=== PATIENT | female | born 1930 | race Caucasian/White ===

== ENCOUNTER 2016-08-03 11:42 | Emergency (ER) | payer MEDICARE ==
[~2016-08-03] VITALS: Ht 162.6 cm; Wt 47.5 kg
[~2016-08-03 11:42] MED LIST: ALPR0.25 PO; BRIM0.2S4 LEFT EYE; CLON0.1T PO; LATA0.002 EACH EYE; MONT10TA2 PO; NIFE30TA61 PO; POTA-163 PO; ZOFR4TAB3 SL; ZOLO25TA PO
[2016-08-03 11:46] VITALS: BP 191/82; PULSE 84; RESP 17; TEMP 97.8; O2SAT 89
[2016-08-03] MEDS ORDERED: SODIUM CHLORIDE 0.9% FLUSH 10 ML FLUSH IVF PRN (12:00)
[2016-08-03] MEDS ORDERED: MECLIZINE HCL 25 MG TAB PO ONE (12:00)
[2016-08-03] MEDS ORDERED: ONDANSETRON HCL 4 MG/2 ML VIAL IVP ONE (12:00)
--- NOTE | 2016-08-03 12:00 | PD ---
HPI Chief Complaint: Dizziness Time Seen by Provider: 11:54 Travel History International Travel<30 days: No Contact w/Intl Traveler<30days: No Traveled to known affect area: No History of Present Illness HPI 85-year-old female with history of COPD and hypertension presents to the emergency Department with sudden onset symptoms of vertigo, and nausea/ vomiting. Patient states she got up feeling well this morning at 9 AM, and went to the living room and read the newspaper as she normally does. Patient states he then stood up immediately got dizzy, with the room spinning, causing her to fall, and becoming suddenly nauseous and vomit. Patient states she's had several similar episodes since that time. Patient denies headache, fever, chills, chest pain, shortness of breath, or abdominal pain. Patient has no numbness, tingling, or weakness in the extremities. Patient currently is chilled but otherwise has no complaints. Patient is allergic to codeine, doxycycline, morphine, penicillin, and sulfa. PFSH Past Medical History Arthritis: Yes Blood Disorders: No Anxiety: Yes Depression: Yes Heart Rhythm Problems: No Cancer: Yes (LUNG ) Cardiac Catheterization: No Cardiovascular Problems: Yes High Cholesterol: No Chemotherapy: No Congestive Heart Failure: No COPD: Yes Diabetes: No Diminished Hearing: No Endocrine: No Glaucoma: No Genitourinary: No Hepatitis: No Hiatal Hernia: No Hypertension: Yes Immune Disorder: No Implanted Vascular Access Dvce: No Musculoskeletal: Yes (MILD ARTHRITIS IN HANDS) Neurologic: No Psychiatric: Yes (CLAUSTROPHOBIC) Reproductive: No Respiratory: Yes (COPD) Myocardial Infarction: No Radiation Therapy: No Thyroid Disease: No Menopausal: Yes Past Surgical History Abdominal Surgery: Yes (gallbladder. appendectomy) AICD: No Appendectomy: Yes Cardiac Surgery: Yes (aortic/THORACIC aneurysm removal with stent placement x2) Cholecystectomy: Yes Coronary Artery Bypass Graft: No Eye Surgery: Yes (BILATERAL CATARACTS) Gynecologic Surgery: Yes Hysterectomy: Yes Joint Replacement: No Pacemaker: No Thoracic Surgery: Yes (right lung lobectomy ) Other Surgery: Yes (lumpectomy right lung) Social History Alcohol Use: Yes (1 beer daily ) Tobacco Use: No Substance Use: No Allergies-Medications (Allergen,Severity, Reaction): Coded Allergies: Codeine (Verified Allergy, Severe, Hives, 03/08/16) Doxycycline (Verified Allergy, Severe, SEVERE RASH, 03/08/16) Morphine (Verified Allergy, Severe, 03/08/16) I DONT KNOW WHAT HAPPENS IT WAS SO LONG AGO Penicillin (Verified Allergy, Severe, Hives, 03/08/16) Sulfa (Verified Allergy, Severe, Hives, 03/08/16) Reported Meds & Prescriptions Reported Meds & Active Scripts Active Zofran (Ondansetron HCl) 4 Mg Tab 4 Mg PO Q6HR PRN Meclizine (Meclizine HCl) 25 Mg Chew 25 Mg CHEW TID Keflex (Cephalexin) 500 Mg Cap 500 Mg PO Q8H Potassium Chloride ER (Potassium Chloride) 20 Meq Tab 20 Meq PO DAILY Reported Clonidine (Clonidine HCl) 0.1 Mg Tab 0.1 Mg PO Q8HR Zoloft (Sertraline HCl) 25 Mg Tab 75 Mg PO DAILY Alprazolam 0.25 Mg Tab 0.25 Mg PO HS PRN Latanoprost Opth Drops (Latanoprost) 0.005% Drops 1 Drop EACH EYE HS Refrigerate until opened. Brimonidine Opth Drops (Brimonidine Tartrate) 0.2% Soln 1 Drop LEFT EYE Q12HR Zofran Odt (Ondansetron Odt) 4 Mg Tab 4 Mg SL Q12HR PRN Nifedipine ER 24 HR (Nifedipine) 30 Mg Tab 90 Mg PO DAILY Singulair (Montelukast Sodium) 10 Mg Tab 10 Mg PO DAILY Review of Systems Except as stated in HPI: all other systems reviewed are Neg General / Constitutional: No: Fever Eyes: No: Diploplia, Blurred Vision, Photophobia, Blind Spots, Visual changes, Blindness HENT: Positive: Vertigo, No: Headaches, Lightheadedness, Sore Throat, Rhinitis , Rhinorrhea, Congestion, Nosebleed, Neck Stiffness, Neck Pain, Dental Difficulties, Ear Discharge, Earache Cardiovascular: No: Chest Pain or Discomfort, Palpitations, Irregular Rhythm, Tachycardia, Diaphoresis Respiratory: No: Cough, Shortness of Breath Gastrointestinal: Positive: Nausea, Vomiting, No: Diarrhea, Abdominal Pain, Loss of Appetite Genitourinary: No: Dysuria Musculoskeletal: No: Pain Skin: No Rash Neurologic: Positive: Dizziness, No: Weakness, Syncope, Focal Abnormalities, Coordination Problem, Tremor, Ataxia, Headache, Change in Mentation, Slurred Speech, Paresthesia, Incontinence, Seizures, Sensory Disturbance Psychiatric: No: Depression Endocrine: No: Polydipsia Hematologic/Lymphatic: No: Easy Bruising Physical Exam Narrative GENERAL: Patient appears in no acute distress. SKIN: Warm and dry. Normal color. Normal turgor. No diaphoresis. HEAD: Atraumatic. Normocephalic. EYES: Pupils equal and round. No scleral icterus. No injection or drainage. No obvious nystagmus or visual changes by confrontation. ENT: No nasal bleeding or discharge. Mucous membranes pink and moist. TMs have no significant findings. There is wax in the canals bilaterally. No sinus tenderness. Pharynx is clear. Uvula is midline. Tongue is midline. Airway is patent. NECK: Trachea midline. No JVD. No bruits appreciated. Neck is supple nontender. CARDIOVASCULAR: Regular rate and rhythm. No murmurs gallops or rubs. RESPIRATORY: No accessory muscle use. Clear to auscultation. Breath sounds equal bilaterally. GASTROINTESTINAL: Abdomen soft, non-tender, nondistended. Hepatic and splenic margins not palpable. MUSCULOSKELETAL: Extremities without clubbing, cyanosis, or edema. No obvious deformities. NEUROLOGICAL: Awake and alert. No obvious cranial nerve deficits. Motor grossly within normal limits. Five out of 5 muscle strength in the arms and legs. Normal speech. PSYCHIATRIC: Appropriate mood and affect; insight and judgment normal. Data Data Last Documented VS Vital Signs Date Time Temp Pulse Resp B/P Pulse Ox O2 Delivery O2 Flow Rate FiO2 08/03/16 12:10 68 20 98 Room Air 08/03/16 11:46 97.8 191/82 Orders Electrocardiogram (08/03/16 12:00) Complete Blood Count With Diff (08/03/16 12:00) Comprehensive Metabolic Panel (08/03/16 12:00) Magnesium (Mg) (08/03/16 12:00) Ckmb (Isoenzyme) Profile (08/03/16 12:00) Troponin I (08/03/16 12:00) Act Partial Throm Time (Ptt) (08/03/16 12:00) Prothrombin Time / Inr (Pt) (08/03/16 12:00) Urinalysis - C+S If Indicated (08/03/16 12:00) Ecg Monitoring (08/03/16 12:00) Iv Access Insert/Monitor (08/03/16 12:00) Oximetry (08/03/16 12:00) Meclizine (Antivert) (08/03/16 12:00) Ondansetron Inj (Zofran Inj) (08/03/16 12:00) Sodium Chloride 0.9% Flush (Ns Flush) (08/03/16 12:00) Mri Brain W/O Contrast (08/03/16 ) Sodium Chlorid 0.9% 500 Ml Inj (Ns 500 M (08/03/16 12:15) Albuterol-Ipratropium Neb (Duoneb Neb) (08/03/16 12:15) Lorazepam Inj (Ativan Inj) (08/03/16 12:30) Urine Culture (08/03/16 13:00) Lorazepam Inj (Ativan Inj) (08/03/16 14:00) Ceftriaxone Inj (Rocephin Inj) (08/03/16 14:15) Labs Laboratory Tests Test 08/03/16 08/03/16 12:16 13:00 White Blood Count 10.5 TH/MM3 Red Blood Count 4.37 MIL/MM3 Hemoglobin 12.3 GM/DL Hematocrit 37.4 % Mean Corpuscular Volume 85.7 FL Mean Corpuscular Hemoglobin 28.3 PG Mean Corpuscular Hemoglobin 33.0 % Concent Red Cell Distribution Width 16.1 % Platelet Count 168 TH/MM3 Mean Platelet Volume 8.6 FL Neutrophils (%) (Auto) 76.8 % Lymphocytes (%) (Auto) 14.9 % Monocytes (%) (Auto) 6.3 % Eosinophils (%) (Auto) 1.3 % Basophils (%) (Auto) 0.7 % Neutrophils # (Auto) 8.1 TH/MM3 Lymphocytes # (Auto) 1.6 TH/MM3 Monocytes # (Auto) 0.7 TH/MM3 Eosinophils # (Auto) 0.1 TH/MM3 Basophils # (Auto) 0.1 TH/MM3 CBC Comment DIFF FINAL Differential Comment Prothrombin Time 10.1 SEC Prothromb Time International 0.9 RATIO Ratio Activated Partial 23.2 SEC Thromboplast Time Sodium Level 138 MEQ/L Potassium Level 4.1 MEQ/L Chloride Level 103 MEQ/L Carbon Dioxide Level 25.8 MEQ/L Anion Gap 9 MEQ/L Blood Urea Nitrogen 21 MG/DL Creatinine 1.12 MG/DL Estimat Glomerular Filtration 46 ML/MIN Rate Random Glucose 94 MG/DL Calcium Level 9.2 MG/DL Magnesium Level 2.3 MG/DL Total Bilirubin 0.6 MG/DL Aspartate Amino Transf 21 U/L (AST/SGOT) Alanine Aminotransferase 18 U/L (ALT/SGPT) Alkaline Phosphatase 64 U/L Total Creatine Kinase 63 U/L Troponin I LESS THAN 0.02 NG/ML Total Protein 7.1 GM/DL Albumin 3.6 GM/DL Urine Color LIGHT-YELLOW Urine Turbidity CLEAR Urine pH 8.0 Urine Specific [place] 1.011 Urine Protein 30 mg/dL Urine Glucose (UA) NEG mg/dL Urine Ketones NEG mg/dL Urine Occult Blood NEG Urine Nitrite NEG Urine Bilirubin NEG Urine Urobilinogen LESS THAN 2.0 MG/DL Urine Leukocyte Esterase LARGE Urine RBC 3 /hpf Urine WBC 95 /hpf Urine Squamous Epithelial <1 /hpf Cells Urine Transitional Epithelial <1 /hpf Cells Urine Mucus FEW /lpf Microscopic Urinalysis Comment CATH-CULTURE IND MDM Medical Decision Making Medical Screen Exam Complete: Yes Emergency Medical Condition: Yes Medical Record Reviewed: Yes Differential Diagnosis Acute vertigo. Intracranial bleed. Nausea and vomiting. Narrative Course Patient is medically stable at time of exam. Labs ordered including CBC, CMP, EKG, chest x-ray, urinalysis, PT PTT and INR, and cardiac panel. Patient is discussed with Dr. Loyola who recommends MRI of the head without contrast. Patient is given meclizine 25 mg by mouth. Patient is given 500 mL normal saline bolus. Patient is given Zofran 4 mg IV. CBC is unremarkable. CMP shows normal electrolytes, BUN 21, creatinine 1.12, and negative troponin. Coagulation studies are normal. Urinalysis shows urinary tract infection. Urine cultures place. 1 g Rocephin IV as ordered per Dr. Loyola. MRI of the head is pending. MRI of the head showed no acute findings per radiologist. Patient is ambulated. Patient will be sent home on Keflex 500 mg 3 times a day 7 days. Patient is given meclizine 25 mg one every 6 hours when necessary vertigo symptoms. #12. Patient also given Zofran 4 mg every 6 hours when necessary nausea. #12. Patient is to follow with her primary care physician is week to ensure improvement. Patient can return the emergency Department with worsening symptoms at any time. Diagnosis Primary Impression: UTI (urinary tract infection) Qualified Code: N30.00 - Acute cystitis without hematuria Additional Impressions: Vertigo Nausea & vomiting Qualified Code: R11.2 - Non-intractable vomiting with nausea, unspecified vomiting type Additional Instructions: Patient will be sent home on Keflex 500 mg 3 times a day 7 days. Patient is given meclizine 25 mg one every 6 hours when necessary vertigo symptoms. #12. Patient also given Zofran 4 mg every 6 hours when necessary nausea. #12. Patient is to follow with her primary care physician is week to ensure improvement. Patient can return the emergency Department with worsening symptoms at any time. Scripts Ondansetron (Zofran)4 Mg Tab4 Mg PO Q6HR PRN (NAUSEA OR VOMITING) #12 TAB Prov:Nataly Bernardo MD 08/03/16 Meclizine 25 Mg Chew25 Mg CHEW TID #12 TAB Ref 0 Prov:Nataly Bernardo MD 08/03/16 Cephalexin (Keflex)500 Mg [id number] Mg PO Q8H #21 CAP Prov:Nataly Bernardo MD 08/03/16 Disposition: 01 DISCHARGE HOME Condition: Stable Dustin Najera Aug 03, 2016 12:00
[2016-08-03 12:10] VITALS: O2SAT 98
[2016-08-03] MEDS ORDERED: RESP: ALBUTEROL 2.5 MG/IPRATROPIUM 0.5 MG NEB (SCH) NEB ONE (12:15)
[2016-08-03] MEDS ORDERED: SODIUM CHLORID 0.9% 500 ML INJ 500 ML IV ONE (12:15)
[2016-08-03] MEDS ORDERED: LORazepam 2 MG/ML VIAL IM ONE (12:30)
[2016-08-03 12:43] LABS: AUTOMATED NEUTROPHIL # 8.1 TH/MM3 (1.8-7.7); BASOPHIL # 0.1 TH/MM3 (0-0.2); BASOPHIL % 0.7 % (0.0-2.0); EOSINOPHIL # 0.1 TH/MM3 (0-0.4); EOSINOPHIL % 1.3 % (0.0-4.0); HEMATOCRIT 37.4 % (35.0-46.0); HEMO FLAGS DIFF FINAL; LYMPH % 14.9 % (9.0-44.0); LYMPHOCYTE # 1.6 TH/MM3 (1.0-4.8); MEAN CELL VOLUME 85.7 FL (80.0-100.0); MEAN CORPUSCULAR HEMOGLOBIN 28.3 PG (27.0-34.0); MONO % 6.3 % (0.0-8.0); NEUT % 76.8 % (16.0-70.0); PLATELET COUNT 168 TH/MM3 (150-450); RED BLOOD COUNT 4.37 MIL/MM3 (4.00-5.30); RED CELL DISTRIBUTION WIDTH 16.1 % (11.6-17.2); WHITE BLOOD COUNT 10.5 TH/MM3 (4.0-11.0)
[2016-08-03 12:54] LABS: APTT (PATIENT) 23.2 SEC (24.3-30.1); INTERNATIONAL NORMALIZED RATIO 0.9 RATIO; PROTHROMBIN TIME - PATIENT 10.1 SEC (9.8-11.6)
[2016-08-03 13:03] LABS: ALKALINE PHOSPHATASE 64 U/L (45-117); ALT (GPT) 18 U/L (10-53); ANION GAP 9 MEQ/L (5-15); AST (GOT) 21 U/L (15-37); BICARBONATE 25.8 MEQ/L (21.0-32.0); BLOOD UREA NITROGEN 21 MG/DL (7-18); CHLORIDE 103 MEQ/L (98-107); CREATINE KINASE 63 U/L (26-192); GLOMERULAR FILTRATION RATE 46 ML/MIN (>89); MAGNESIUM 2.3 MG/DL (1.5-2.5); POTASSIUM 4.1 MEQ/L (3.5-5.1); SODIUM (NA) 138 MEQ/L (136-145); TOTAL BILIRUBIN ADULT 0.6 MG/DL (0.2-1.0)
--- NOTE | 2016-08-03 13:06 | PD ---
Data Data Last Documented VS Vital Signs Date Time Temp Pulse Resp B/P Pulse Ox O2 Delivery O2 Flow Rate FiO2 08/03/16 12:10 68 20 98 Room Air 08/03/16 11:46 97.8 191/82 Orders Electrocardiogram (08/03/16 12:00) Complete Blood Count With Diff (08/03/16 12:00) Comprehensive Metabolic Panel (08/03/16 12:00) Magnesium (Mg) (08/03/16 12:00) Ckmb (Isoenzyme) Profile (08/03/16 12:00) Troponin I (08/03/16 12:00) Act Partial Throm Time (Ptt) (08/03/16 12:00) Prothrombin Time / Inr (Pt) (08/03/16 12:00) Urinalysis - C+S If Indicated (08/03/16 12:00) Ecg Monitoring (08/03/16 12:00) Iv Access Insert/Monitor (08/03/16 12:00) Oximetry (08/03/16 12:00) Meclizine (Antivert) (08/03/16 12:00) Ondansetron Inj (Zofran Inj) (08/03/16 12:00) Sodium Chloride 0.9% Flush (Ns Flush) (08/03/16 12:00) Mri Brain W/O Contrast (08/03/16 ) Sodium Chlorid 0.9% 500 Ml Inj (Ns 500 M (08/03/16 12:15) Albuterol-Ipratropium Neb (Duoneb Neb) (08/03/16 12:15) Lorazepam Inj (Ativan Inj) (08/03/16 12:30) Labs Laboratory Tests Test 08/03/16 12:16 White Blood Count 10.5 TH/MM3 Red Blood Count 4.37 MIL/MM3 Hemoglobin 12.3 GM/DL Hematocrit 37.4 % Mean Corpuscular Volume 85.7 FL Mean Corpuscular Hemoglobin 28.3 PG Mean Corpuscular Hemoglobin 33.0 % Concent Red Cell Distribution Width 16.1 % Platelet Count 168 TH/MM3 Mean Platelet Volume 8.6 FL Neutrophils (%) (Auto) 76.8 % Lymphocytes (%) (Auto) 14.9 % Monocytes (%) (Auto) 6.3 % Eosinophils (%) (Auto) 1.3 % Basophils (%) (Auto) 0.7 % Neutrophils # (Auto) 8.1 TH/MM3 Lymphocytes # (Auto) 1.6 TH/MM3 Monocytes # (Auto) 0.7 TH/MM3 Eosinophils # (Auto) 0.1 TH/MM3 Basophils # (Auto) 0.1 TH/MM3 CBC Comment DIFF FINAL Differential Comment Prothrombin Time 10.1 SEC Prothromb Time International 0.9 RATIO Ratio Activated Partial 23.2 SEC Thromboplast Time Sodium Level 138 MEQ/L Potassium Level 4.1 MEQ/L Chloride Level 103 MEQ/L Carbon Dioxide Level 25.8 MEQ/L Anion Gap 9 MEQ/L Blood Urea Nitrogen 21 MG/DL Creatinine 1.12 MG/DL Estimat Glomerular Filtration 46 ML/MIN Rate Random Glucose 94 MG/DL Calcium Level 9.2 MG/DL Magnesium Level 2.3 MG/DL Total Bilirubin 0.6 MG/DL Aspartate Amino Transf 21 U/L (AST/SGOT) Alanine Aminotransferase 18 U/L (ALT/SGPT) Alkaline Phosphatase 64 U/L Total Creatine Kinase 63 U/L Troponin I LESS THAN 0.02 NG/ML Total Protein 7.1 GM/DL Albumin 3.6 GM/DL [facility] Supervised Visit with SAÚL: Yes Narrative Course I, Dr. Bernardo, have reviewed the advance practice practioner's documentation and am in agreement, met with the patient face to face, made the diagnosis, and the medical decision making was done by me. *My assessment and Findings: 85-year-old female here with complaint of sudden onset of vertigo with nausea and vomiting. States that his symptoms happen intermittently, seems the common and resolve almost like a light switch. She does not have any other neurologic symptoms such as word-finding difficulties, slurred speech, numbness, tingling, weakness. Patient denies a history of vertigo. Otherwise has been really well recently. She on exam is asymptomatic at the time of my evaluation. No nystagmus, test of skew is normal, so does not provoked with head movement. Differential includes peripheral versus central etiology of vertigo. Given her age will obtain laboratory workup, EKG and MRI of the brain to evaluate for central etiology, treat her symptoms and if negative discharge to home if she is able ambulate independently and asymptomatically. Nataly Bernardo MD Aug 03, 2016 13:06
[2016-08-03 13:49] LABS: BLOOD, URINE NEG (NEG); GLUCOSE,URINE NEG (NEG); KETONE, URINE NEG (NEG); MUCUS URINE FEW /lpf (OCC); NITRITE,URINE NEG (NEG); SQUAMOUS EPITHELIAL CELL URINE <1 /hpf (0-5); TRANSITIONAL EPI CELLS, URINE <1 /hpf; URINE COLOR LIGHT-YELLOW (YELLW/STRAW)
[2016-08-03 13:50] LABS: COMMENT (UR) CATH-CULTURE IND; CULTURE IF INDICATED CATH CULTURE IND
[2016-08-03] MEDS ORDERED: LORazepam 2 MG/ML VIAL IV PUSH ONE (14:00)
[2016-08-03] MEDS ORDERED: cefTRIAXone INJ 1,000 MG in SODIUM CHLORIDE 0.9% INJ 100 ML IV ONE (14:15)
--- NOTE | 2016-08-03 14:49 | RADRPT ---
EXAM DATE/TIME: 08/03/2016 14:26 [facility] COMPARISON: No previous studies available for comparison. INDICATIONS : Dizziness. MEDICAL HISTORY : Chronic obstructive pulmonary disease. Hypertension. Carcinoma, lung. SURGICAL HISTORY : Abdominal aortic aneurysm repair. Appendectomy. Hysterectomy. Right lobectomy. ENCOUNTER: Initial ACUITY: 1 day PAIN SCORE: 0/10 LOCATION: cranial TECHNIQUE: Multiplanar, multisequence MRI of the brain was performed without contrast. FINDINGS: There is no evidence for intracranial hemorrhage, mass effect, mass lesions, edema, or extra-axial fl uid collections. There are no signs of acute infarction for technique. The diffusion portion is unre markable. Slight degree of brain atrophy is seen. Slight periventricular white matter changes are see n nonspecific mostly consistent with chronic small vessel ischemic changes. CONCLUSION: Chronic atrophic and small vessel ischemic changes without any evidence for acute hem orrhage or mass effect. Emelina Mcelroy MD on August 03, 2016 at 14:46 Board Certified Radiologist. This report was verified electronically.
[2016-08-03] MEDS ORDERED: CEPH-460 PO (15:04)
[2016-08-03] MEDS ORDERED: MECL25CH CHEW (15:04)
[2016-08-03] MEDS ORDERED: ZOFR4TAB PO (15:04)
--- NOTE | 2016-08-04 11:50 | EKG ---
Date Performed: 08/03/2016 Time Performed: 12:58:14 PTAGE: 85 years EKG: SINUS BRADYCARDIA BORDERLINE ECG PREVIOUS TRACING : 01/02/2016 13.52 Compared to prior tracing no significant change DOCTOR: Adam Prajapati Interpretating Date/Time 08/04/2016 11:49:29
== END 2016-08-03 18:10 | disposition home or self-care (01) ==
LOC: NEPE 11:42
DX: N39.0 Urinary tract infection, site not specified (principal); R42 Dizziness and giddiness; R11.2 Nausea with vomiting, unspecified; R00.1 Bradycardia, unspecified; J44.9 Chronic obstructive pulmonary disease, unspecified; I10 Essential (primary) hypertension
CPT/HCPCS: 70551; 80053; 81001; 82550; 83735; 84484; 85025; 85610; 85730; 87086; 93005; 96361; 96365; 96375; 99284; J0696; J2060; J2405; J7040

== ENCOUNTER 2016-08-15 15:15 | Emergency (ER) | payer MEDICARE ==
[~2016-08-15] VITALS: Ht 152.4 cm; Wt 45.5 kg
[~2016-08-15 15:15] MED LIST changes: +CEPH-460 PO; +MECL25CH CHEW; +ZOFR4TAB PO
[2016-08-15 15:17] VITALS: BP 108/67; PULSE 98; RESP 21; TEMP 98.8; O2SAT 95
--- NOTE | 2016-08-15 15:20 | PD ---
Physical Exam Date Seen by Provider: Aug 15, 2016 Time Seen by Provider: 15:19 Narrative 85 yo female here for stomach pains since thursday. History of colitis. Nause and vomit as well as diarrhea. No bleeding. No chest pain or SOB. Pain is 9/10. Has not seen anybody for this. No travel. Vitals sign stable. Patient awaiting bed placement. [facility] Medical Record Reviewed: Yes Supervised Visit with SAÚL: Ethan Shelton Aug 15, 2016 15:20
[2016-08-15 16:59] LABS: AUTOMATED NEUTROPHIL # 10.4 TH/MM3 (1.8-7.7); BASOPHIL # 0.1 TH/MM3 (0-0.2); BASOPHIL % 0.9 % (0.0-2.0); EOSINOPHIL # 0.2 TH/MM3 (0-0.4); EOSINOPHIL % 1.2 % (0.0-4.0); HEMATOCRIT 38.8 % (35.0-46.0); HEMO FLAGS DIFF FINAL; LYMPH % 21.2 % (9.0-44.0); LYMPHOCYTE # 3.1 TH/MM3 (1.0-4.8); MEAN CELL VOLUME 85.1 FL (80.0-100.0); MEAN CORPUSCULAR HEMOGLOBIN 28.5 PG (27.0-34.0); MEAN CORPUSCULAR HGB CONC 33.5 % (32.0-36.0); MONO % 6.3 % (0.0-8.0); NEUT % 70.4 % (16.0-70.0); PLATELET COUNT 202 TH/MM3 (150-450); RED BLOOD COUNT 4.56 MIL/MM3 (4.00-5.30); RED CELL DISTRIBUTION WIDTH 16.3 % (11.6-17.2); WHITE BLOOD COUNT 14.8 TH/MM3 (4.0-11.0)
[2016-08-15 17:17] LABS: ANION GAP 9 MEQ/L (5-15); APTT (PATIENT) 21.1 SEC (24.3-30.1); AST (GOT) 13 U/L (15-37); BICARBONATE 27.8 MEQ/L (21.0-32.0); BLOOD UREA NITROGEN 25 MG/DL (7-18); CHLORIDE 100 MEQ/L (98-107); GLOMERULAR FILTRATION RATE 41 ML/MIN (>89); INTERNATIONAL NORMALIZED RATIO 0.9 RATIO; POTASSIUM 3.6 MEQ/L (3.5-5.1); PROTHROMBIN TIME - PATIENT 10.1 SEC (9.8-11.6); SODIUM (NA) 137 MEQ/L (136-145)
[2016-08-15 17:23] LABS: ALKALINE PHOSPHATASE 69 U/L (45-117); ALT (GPT) 15 U/L (10-53)
[2016-08-15] MEDS ORDERED: SODIUM CHLOR 0.9% 1000 ML INJ 1,000 ML IV SCH (17:43)
--- NOTE | 2016-08-15 17:43 | PD ---
HPI Chief Complaint: GI Complaint Time Seen by Provider: 17:32 Travel History International Travel<30 days: No Contact w/Intl Traveler<30days: No Traveled to known affect area: No History of Present Illness HPI 85-year-old female presents the emergency Department with 4 day history of abdominal pain, nausea, and vomiting. Patient states last time she vomited was yesterday. Patient has a history of dementia but is here with her son. Patient denies fever, chills, shortness of breath, or chest pain. She denies diarrhea. She states she's been drinking lots of fluids but has not urinated that she recalls in the last 24 hours. Patient is not dizzy has no headache. Patient has a history of diverticulitis and colitis in the past. Patient also has a history of constipation with fecal impaction according to the son. Patient did take 3 laxatives without improvement. She cannot recall her last bowel movement. She's had no diarrhea. She has multiple allergies including codeine, doxycycline, morphine, penicillin, and sulfa. PFSH Past Medical History Arthritis: Yes Blood Disorders: No Anxiety: Yes Depression: Yes Heart Rhythm Problems: No Cancer: Yes (LUNG ) Cardiac Catheterization: No Cardiovascular Problems: Yes High Cholesterol: No Chemotherapy: No Congestive Heart Failure: No COPD: Yes Diabetes: No Diminished Hearing: No Endocrine: No Glaucoma: No Genitourinary: No Hepatitis: No Hiatal Hernia: No Hypertension: Yes Immune Disorder: No Implanted Vascular Access Dvce: No Musculoskeletal: Yes (MILD ARTHRITIS IN HANDS) Neurologic: No Psychiatric: Yes (CLAUSTROPHOBIC) Reproductive: No Respiratory: Yes (COPD) Myocardial Infarction: No Radiation Therapy: No Thyroid Disease: No Menopausal: Yes Past Surgical History Abdominal Surgery: Yes (gallbladder. appendectomy) AICD: No Appendectomy: Yes Cardiac Surgery: Yes (aortic/THORACIC aneurysm removal with stent placement x2) Cholecystectomy: Yes Coronary Artery Bypass Graft: No Eye Surgery: Yes (BILATERAL CATARACTS) Gynecologic Surgery: Yes Hysterectomy: Yes Joint Replacement: No Pacemaker: No Thoracic Surgery: Yes (right lung lobectomy ) Other Surgery: Yes (lumpectomy right lung) Social History Alcohol Use: Yes (1 beer daily ) Tobacco Use: No Substance Use: No Allergies-Medications (Allergen,Severity, Reaction): Coded Allergies: Codeine (Verified Allergy, Severe, Hives, 03/08/16) Doxycycline (Verified Allergy, Severe, SEVERE RASH, 03/08/16) Morphine (Verified Allergy, Severe, 03/08/16) I DONT KNOW WHAT HAPPENS IT WAS SO LONG AGO Penicillin (Verified Allergy, Severe, Hives, 03/08/16) Sulfa (Verified Allergy, Severe, Hives, 03/08/16) Reported Meds & Prescriptions Reported Meds & Active Scripts Active Zofran (Ondansetron HCl) 4 Mg Tab 4 Mg PO Q6HR PRN Meclizine (Meclizine HCl) 25 Mg Chew 25 Mg CHEW TID Keflex (Cephalexin) 500 Mg Cap 500 Mg PO Q8H Potassium Chloride ER (Potassium Chloride) 20 Meq Tab 20 Meq PO DAILY Reported Clonidine (Clonidine HCl) 0.1 Mg Tab 0.1 Mg PO Q8HR Zoloft (Sertraline HCl) 25 Mg Tab 75 Mg PO DAILY Alprazolam 0.25 Mg Tab 0.25 Mg PO HS PRN Latanoprost Opth Drops (Latanoprost) 0.005% Drops 1 Drop EACH EYE HS Refrigerate until opened. Brimonidine Opth Drops (Brimonidine Tartrate) 0.2% Soln 1 Drop LEFT EYE Q12HR Zofran Odt (Ondansetron Odt) 4 Mg Tab 4 Mg SL Q12HR PRN Nifedipine ER 24 HR (Nifedipine) 30 Mg Tab 90 Mg PO DAILY Singulair (Montelukast Sodium) 10 Mg Tab 10 Mg PO DAILY Review of Systems Except as stated in HPI: all other systems reviewed are Neg General / Constitutional: No: Fever, Chills Eyes: No: Visual changes HENT: No: Headaches Cardiovascular: No: Chest Pain or Discomfort Respiratory: No: Shortness of Breath Gastrointestinal: Positive: Nausea, Vomiting, Abdominal Pain, Constipation, No : Diarrhea Genitourinary: Positive: Decreased Urinary Output, No: Dysuria Musculoskeletal: No: Pain Skin: No Rash Neurologic: No: Weakness Psychiatric: No: Depression Endocrine: No: Polydipsia Hematologic/Lymphatic: No: Easy Bruising Physical Exam Narrative GENERAL: Patient appears in mild to moderate distress. SKIN: Warm and dry. Normal color. Poor turgor with tenting. HEAD: Atraumatic. Normocephalic. EYES: Pupils equal and round. No scleral icterus. No injection or drainage. ENT: No nasal bleeding or discharge. Mucous membranes pink and moist. Pharynx is clear. Airway is patent. NECK: Trachea midline. Supple and nontender. CARDIOVASCULAR: Regular rate and rhythm. No murmurs gallops or rubs. RESPIRATORY: No accessory muscle use. Clear to auscultation. Breath sounds equal bilaterally. GASTROINTESTINAL: Abdomen soft, generalized tenderness predominantly in the middle area above the umbilicus. Mild distention. Bowel sounds are present in all quadrants. No rebound or point tenderness elicited. Hepatic and splenic margins not palpable. No CVA tenderness. MUSCULOSKELETAL: Extremities without clubbing, cyanosis, or edema. No obvious deformities. NEUROLOGICAL: Awake and alert. No obvious cranial nerve deficits. Motor grossly within normal limits. Five out of 5 muscle strength in the arms and legs. Normal speech. PSYCHIATRIC: Appropriate mood and affect; insight and judgment normal. Data Data Last Documented VS Vital Signs Date Time Temp Pulse Resp B/P Pulse Ox O2 Delivery O2 Flow Rate FiO2 08/15/16 21:21 74 18 134/64 97 Nasal Cannula 3 08/15/16 15:17 98.8 Orders Complete Blood Count With Diff (08/15/16 15:54) Comprehensive Metabolic Panel (08/15/16 15:54) Lipase (08/15/16 15:54) Prothrombin Time / Inr (Pt) (08/15/16 15:54) Act Partial Throm Time (Ptt) (08/15/16 15:54) Urinalysis - C+S If Indicated (08/15/16 15:54) Lipase (08/15/16 17:43) Lactic Acid (08/15/16 17:43) Act Partial Throm Time (Ptt) (08/15/16 17:43) Iv Access Insert/Monitor (08/15/16 17:43) Ecg Monitoring (08/15/16 17:43) Oximetry (08/15/16 17:43) NPO (08/15/16 17:43) Ondansetron Inj (Zofran Inj) (08/15/16 17:45) Sodium Chlor 0.9% 1000 Ml Inj (Ns 1000 M (08/15/16 17:43) Sodium Chloride 0.9% Flush (Ns Flush) (08/15/16 17:45) Electrocardiogram (08/15/16 17:43) Hydromorphone Pf Inj (Dilaudid Pf Inj) (08/15/16 17:45) Cath For Specimen (08/15/16 17:43) Ct Abd/Pel W/O Iv Contrast (08/15/16 17:43) Diphenhydramine Inj (Benadryl Inj) (08/15/16 21:15) Diphenhydramine Inj (Benadryl Inj) (08/15/16 21:07) Diphenhydramine Inj (Benadryl Inj) (08/15/16 21:45) Methylprednisolone So Succ Inj (Solumedr (08/15/16 21:45) Famotidine Inj (Pepcid Inj) (08/15/16 21:45) Polyethylene Glycol (Miralax) (08/15/16 22:00) Labs Laboratory Tests Test 08/15/16 08/15/16 08/15/16 16:15 20:40 21:14 White Blood Count 14.8 TH/MM3 Red Blood Count 4.56 MIL/MM3 Hemoglobin 13.0 GM/DL Hematocrit 38.8 % Mean Corpuscular Volume 85.1 FL Mean Corpuscular Hemoglobin 28.5 PG Mean Corpuscular Hemoglobin 33.5 % Concent Red Cell Distribution Width 16.3 % Platelet Count 202 TH/MM3 Mean Platelet Volume 8.7 FL Neutrophils (%) (Auto) 70.4 % Lymphocytes (%) (Auto) 21.2 % Monocytes (%) (Auto) 6.3 % Eosinophils (%) (Auto) 1.2 % Basophils (%) (Auto) 0.9 % Neutrophils # (Auto) 10.4 TH/MM3 Lymphocytes # (Auto) 3.1 TH/MM3 Monocytes # (Auto) 0.9 TH/MM3 Eosinophils # (Auto) 0.2 TH/MM3 Basophils # (Auto) 0.1 TH/MM3 CBC Comment DIFF FINAL Differential Comment Prothrombin Time 10.1 SEC Prothromb Time International 0.9 RATIO Ratio Activated Partial 21.1 SEC Thromboplast Time Sodium Level 137 MEQ/L Potassium Level 3.6 MEQ/L Chloride Level 100 MEQ/L Carbon Dioxide Level 27.8 MEQ/L Anion Gap 9 MEQ/L Blood Urea Nitrogen 25 MG/DL Creatinine 1.24 MG/DL Estimat Glomerular Filtration 41 ML/MIN Rate Random Glucose 108 MG/DL Calcium Level 9.2 MG/DL Total Bilirubin 1.0 MG/DL Aspartate Amino Transf 13 U/L (AST/SGOT) Alanine Aminotransferase 15 U/L (ALT/SGPT) Alkaline Phosphatase 69 U/L Total Protein 7.3 GM/DL Albumin 3.6 GM/DL Lipase 101 U/L Lactic Acid Level 1.1 mmol/L Urine Color YELLOW Urine Turbidity CLEAR Urine pH 7.0 Urine Specific [place] 1.020 Urine Protein TRACE mg/dL Urine Glucose (UA) NEG mg/dL Urine Ketones TRACE mg/dL Urine Occult Blood NEG Urine Nitrite NEG Urine Bilirubin NEG Urine Urobilinogen LESS THAN 2.0 MG/DL Urine Leukocyte Esterase NEG Urine RBC LESS THAN 1 /hpf Microscopic Urinalysis Comment CULT NOT INDICATED MDM Medical Decision Making Medical Screen Exam Complete: Yes Emergency Medical Condition: Yes Medical Record Reviewed: Yes Differential Diagnosis Abdominal pain. Nausea vomiting. Diverticulitis. Colitis. Constipation. Bowel obstruction. Urinary tract infection. Urinary retention. Narrative Course Patient is medically stable at time of exam. Labs ordered including CBC, CMP, lipase, lactic acid, and blood cultures 2. Urinalysis is ordered. Chest x-ray, EKG, and abdominal CT with IV contrast is ordered. Patient is given 1000 mL of normal saline bolus. Patient is given 0.5 mg Dilaudid IV. CBC shows slight leukocytosis of 14.8. CMP shows normal electrolytes, BUN is 25. Creatinine is 1.24, random glucose of 108. Normal lipase. Normal alkaline phosphatase. Coagulation studies show PT of 10.1, INR 0.9. CT of the abdomen shows no acute process other than increased stool without obstruction. Per radiologist per Patient had a reaction to the dye a lot of with itching and complaints of back pain. Patient had no shortness of breath. Patient was given Benadryl 25 mg IV with improvement. After an hour she started having symptoms again and she was given an additional dose of Benadryl 25 mg as well as Solu-Medrol 125 mg IV, and Pepcid 20 mg IV. Patient was monitored here in the department for 2 hours. Patient is given MiraLAX 17.6 g by mouth now. Patient is felt stable to be discharged home. Patient will be continued on MiraLAX twice daily for the next several days until improved. Patient given prednisone 20 mg daily for the next 5 days. Patient is given Pepcid 20 mg daily for the next 5 days. Patient is encouraged to walk and push fluids and use a low fiber diet. Patient is to follow with her primary care physician early next week or return to emergency department worsening symptoms as needed. Referrals: Primary Care Physician Patient Instructions: Narcotic given in the ED, General Instructions Additional Instructions: Patient had a reaction to the dye a lot of with itching and complaints of back pain. Patient had no shortness of breath. Patient was given Benadryl 25 mg IV with improvement. After an hour she started having symptoms again and she was given an additional dose of Benadryl 25 mg as well as Solu-Medrol 125 mg IV, and Pepcid 20 mg IV. Patient was monitored here in the department for 2 hours. Patient is given MiraLAX 17.6 g by mouth now. Patient is felt stable to be discharged home. Patient will be continued on MiraLAX twice daily for the next several days until improved. Patient given prednisone 20 mg daily for the next 5 days. Patient is given Pepcid 20 mg daily for the next 5 days. Patient is encouraged to walk and push fluids and use a low fiber diet. Patient is to follow with her primary care physician early next week or return to emergency department worsening symptoms as needed. Med/Other Pt SpecificInfo: Prescription(s) given Scripts Famotidine (Pepcid)20 Mg Tab20 Mg PO BID #10 TAB Ref 0 Prov:Miguel Shelton MD 08/15/16 Prednisone 20 Mg Tab20 Mg PO DAILY #5 TAB Ref 0 Prov:Miguel Shelton MD 08/15/16 Polyethylene Glycol 3350 Powder (Miralax Powder)17 Gm Powd17 Gm PO BID PRN ( constipation) #1 BOTTLE Ref 0 Mix and dissolve one measuring cap-ful (17 grams) in water or juice. Prov:Miguel Shelton MD 08/15/16 Disposition: 01 DISCHARGE HOME Condition: Stable Dustin Najera Aug 15, 2016 17:43
[2016-08-15] MEDS ORDERED: SODIUM CHLORIDE 0.9% FLUSH 10 ML FLUSH IV FLUSH PRN (17:45)
[2016-08-15] MEDS ORDERED: HYDROmorphone HCL PF 1 MG/ML VIAL IVS ONE (17:45)
[2016-08-15] MEDS ORDERED: ONDANSETRON HCL 4 MG/2 ML VIAL IVP ONE (17:45)
--- NOTE | 2016-08-15 20:08 | RADRPT ---
EXAM DATE/TIME: 08/15/2016 19:32 [facility] COMPARISON: CT ABDOMEN & PELVIS W/O CONTRAST, March 01, 2016, 11:44. INDICATIONS : Abdominal pain with nausea and vomiting. ORAL CONTRAST: No oral contrast ingested. RADIATION DOSE: 4.48 CTDIvol (mGy) MEDICAL HISTORY : Hypertension. Chronic obstructive pulmonary disease. SURGICAL HISTORY : Abdominal aortic aneurysm repair. ENCOUNTER: Initial ACUITY: 1 day PAIN SCALE: 5/10 LOCATION: Abdomen TECHNIQUE: Volumetric scanning of the abdomen and pelvis was performed. Using automated exposure control and adjustment of the mA and/or kV according to patient size, radiation dose was kept as low as reasonably achievable to obtain optimal diagnostic quality images. FINDINGS: There is an aortic stent graft extending from the descending thoracic aorta and then in to the common iliac arteries bilaterally. There continues to be some dilatation of the [place] aorta around the distal aspect of the stent with this portion of the aorta measuring 4.2 cm. This appears less dilated on the current exam, previously measuring 4.9 cm. There are extensive calcifications se en throughout the [place] arterial system. The liver, spleen, pancreas and adrenal glands are grossly normal. Clips are seen in the right upper quadrant from prior cholecystectomy. There are central calcifications in the kidneys bilaterally li iron related to arterial structures. There continues to be a 1.3 cm low density mass seen at the post erior right kidney likely representing a cyst. Tiny nonobstructing stones cannot absolutely be exclud ed. There is no hydronephrosis. There is a moderate amount of stool seen throughout the colon. Sign ificantly dilated bowel is not seen. The anterior abdominal wall appears intact. There is some mild persistent chronic interstitial disease seen at the lung bases. There is a levocu rvature of the thoracolumbar region. There is some degenerative change in the lower lumbar spine. CONCLUSION: 1. Moderate amount of stool seen throughout the colon. Significant bowel dilatation is not seen. 2. Aortic stent graft in place extending from the descending thoracic aorta into the common iliac art eries bilaterally. 3. Central calcifications of the kidneys bilaterally likely related to vascular structures. A small n onobstructing stones cannot be excluded. There is no hydronephrosis. Markel Devi MD on August 15, 2016 at 19:52 Board Certified Radiologist. This report was verified electronically.
[2016-08-15 20:42] VITALS: O2SAT 98
[2016-08-15] MEDS ORDERED: diphenhydrAMINE HCL 50 MG/ML VIAL ONE (21:07)
[2016-08-15] MEDS ORDERED: diphenhydrAMINE HCL 50 MG/ML VIAL IV PUSH ONE ×2 (21:15→21:45)
[2016-08-15 21:21] VITALS: BP 134/64; PULSE 74; RESP 18; O2SAT 97
[2016-08-15 21:37] LABS: BLOOD, URINE NEG (NEG); GLUCOSE,URINE NEG (NEG); KETONE, URINE TRACE mg/dL (NEG); NITRITE,URINE NEG (NEG); URINE COLOR YELLOW (YELLW/STRAW)
[2016-08-15 21:39] LABS: COMMENT (UR) CULT NOT INDICATED; CULTURE IF INDICATED CULT NOT INDICATED
[2016-08-15] MEDS ORDERED: FAMOTIDINE 20 MG/2 ML VIAL IV PUSH ONE (21:45)
[2016-08-15] MEDS ORDERED: methylPREDNISolone SOD SUCC 125 MG/2 ML VIAL IV PUSH ONE (21:45)
[2016-08-15] MEDS ORDERED: POLYETHYLENE GLYCOL 17 GM PKG PO ONE (22:00)
[2016-08-15] MEDS ORDERED: MIRA33504 PO (22:02)
[2016-08-15] MEDS ORDERED: FAMO1TAB37 PO (22:03)
[2016-08-15] MEDS ORDERED: PRED20 PO (22:03)
--- NOTE | 2016-08-15 23:19 | PD ---
Physical Exam Narrative GENERAL: Well-nourished, well-developed patient. Well-appearing SKIN: Warm and dry. HEAD: Normocephalic and atraumatic. EYES: No injection or drainage. ENT: No nasal drainage noted. NECK: Supple, trachea midline. CARDIOVASCULAR: Regular rate and rhythm RESPIRATORY: Breath sounds equal bilaterally. No accessory muscle use. NEUROLOGICAL: Awake and alert. Moves all extremities. Normal speech. Data Data Last Documented VS Vital Signs Date Time Temp Pulse Resp B/P Pulse Ox O2 Delivery O2 Flow Rate FiO2 08/15/16 21:21 74 18 134/64 97 Nasal Cannula 3 08/15/16 15:17 98.8 92 on room air at dc Orders Complete Blood Count With Diff (08/15/16 15:54) Comprehensive Metabolic Panel (08/15/16 15:54) Lipase (08/15/16 15:54) Prothrombin Time / Inr (Pt) (08/15/16 15:54) Act Partial Throm Time (Ptt) (08/15/16 15:54) Urinalysis - C+S If Indicated (08/15/16 15:54) Lipase (08/15/16 17:43) Lactic Acid (08/15/16 17:43) Act Partial Throm Time (Ptt) (08/15/16 17:43) Iv Access Insert/Monitor (08/15/16 17:43) Ecg Monitoring (08/15/16 17:43) Oximetry (08/15/16 17:43) NPO (08/15/16 17:43) Ondansetron Inj (Zofran Inj) (08/15/16 17:45) Sodium Chlor 0.9% 1000 Ml Inj (Ns 1000 M (08/15/16 17:43) Sodium Chloride 0.9% Flush (Ns Flush) (08/15/16 17:45) Electrocardiogram (08/15/16 17:43) Hydromorphone Pf Inj (Dilaudid Pf Inj) (08/15/16 17:45) Cath For Specimen (08/15/16 17:43) Ct Abd/Pel W/O Iv Contrast (08/15/16 17:43) Diphenhydramine Inj (Benadryl Inj) (08/15/16 21:15) Diphenhydramine Inj (Benadryl Inj) (08/15/16 21:07) Diphenhydramine Inj (Benadryl Inj) (08/15/16 21:45) Methylprednisolone So Succ Inj (Solumedr (08/15/16 21:45) Famotidine Inj (Pepcid Inj) (08/15/16 21:45) Polyethylene Glycol (Miralax) (08/15/16 22:00) Labs Laboratory Tests Test 08/15/16 08/15/16 08/15/16 16:15 20:40 21:14 White Blood Count 14.8 TH/MM3 Red Blood Count 4.56 MIL/MM3 Hemoglobin 13.0 GM/DL Hematocrit 38.8 % Mean Corpuscular Volume 85.1 FL Mean Corpuscular Hemoglobin 28.5 PG Mean Corpuscular Hemoglobin 33.5 % Concent Red Cell Distribution Width 16.3 % Platelet Count 202 TH/MM3 Mean Platelet Volume 8.7 FL Neutrophils (%) (Auto) 70.4 % Lymphocytes (%) (Auto) 21.2 % Monocytes (%) (Auto) 6.3 % Eosinophils (%) (Auto) 1.2 % Basophils (%) (Auto) 0.9 % Neutrophils # (Auto) 10.4 TH/MM3 Lymphocytes # (Auto) 3.1 TH/MM3 Monocytes # (Auto) 0.9 TH/MM3 Eosinophils # (Auto) 0.2 TH/MM3 Basophils # (Auto) 0.1 TH/MM3 CBC Comment DIFF FINAL Differential Comment Prothrombin Time 10.1 SEC Prothromb Time International 0.9 RATIO Ratio Activated Partial 21.1 SEC Thromboplast Time Sodium Level 137 MEQ/L Potassium Level 3.6 MEQ/L Chloride Level 100 MEQ/L Carbon Dioxide Level 27.8 MEQ/L Anion Gap 9 MEQ/L Blood Urea Nitrogen 25 MG/DL Creatinine 1.24 MG/DL Estimat Glomerular Filtration 41 ML/MIN Rate Random Glucose 108 MG/DL Calcium Level 9.2 MG/DL Total Bilirubin 1.0 MG/DL Aspartate Amino Transf 13 U/L (AST/SGOT) Alanine Aminotransferase 15 U/L (ALT/SGPT) Alkaline Phosphatase 69 U/L Total Protein 7.3 GM/DL Albumin 3.6 GM/DL Lipase 101 U/L Lactic Acid Level 1.1 mmol/L Urine Color YELLOW Urine Turbidity CLEAR Urine pH 7.0 Urine Specific [place] 1.020 Urine Protein TRACE mg/dL Urine Glucose (UA) NEG mg/dL Urine Ketones TRACE mg/dL Urine Occult Blood NEG Urine Nitrite NEG Urine Bilirubin NEG Urine Urobilinogen LESS THAN 2.0 MG/DL Urine Leukocyte Esterase NEG Urine RBC LESS THAN 1 /hpf Microscopic Urinalysis Comment CULT NOT INDICATED MDM Supervised Visit with SAÚL: Yes Interpretation(s) CBC & BMP Diagram 08/15/16 16:15 Last 24 hours Impressions Abdomen/Pelvis CT 08/15/16 1743 Signed Impressions: Service Date/Time: Monday, August 15, 2016 19:32 - CONCLUSION: 1. Moderate amount of stool seen throughout the colon. Significant bowel dilatation is not seen. 2. Aortic stent graft in place extending from the descending thoracic aorta into the common iliac arteries bilaterally. 3. Central calcifications of the kidneys bilaterally likely related to vascular structures. A small nonobstructing stones cannot be excluded. There is no hydronephrosis. Markel Devi MD Narrative Course I, Dr. tavares, have reviewed the advance practice practitioner's documentation and am in agreement, met with the patient face to face, made the diagnosis, and the medical decision making was done by me. *My assessment and Findings: 85-year-old female presents with abdominal pain. ER workup reveals constipation. Patient given prescription to assist with this at home. Patient had mild allergic reaction with Dilaudid administration where she developed a rash that improved with Benadryl. On reevaluation patient is feeling better and wanting to go home. Given return instructions. Diagnosis Primary Impression: Abdominal pain Qualified Code: R10.9 - Abdominal pain, unspecified location Additional Impression: Allergic reaction caused by a drug Qualified Code: T78.40XA - Allergic reaction caused by a drug, initial encounter Referrals: Primary Care Physician 1 day Patient Instructions: General Instructions, Narcotic given in the ED Additional Instruction: Patient is encouraged to walk and push fluids and use a low fiber diet. Patient is to follow with her primary care physician or return to emergency department worsening symptoms as needed. Med/Other Pt SpecificInfo: Prescription(s) given Scripts Famotidine (Pepcid)20 Mg Tab20 Mg PO BID #10 TAB Ref 0 Prov:Miguel Shelton MD 08/15/16 Prednisone 20 Mg Tab20 Mg PO DAILY #5 TAB Ref 0 Prov:Miguel Shelton MD 08/15/16 Polyethylene Glycol 3350 Powder (Miralax Powder)17 Gm Powd17 Gm PO BID PRN ( constipation) #1 BOTTLE Ref 0 Mix and dissolve one measuring cap-ful (17 grams) in water or juice. Prov:Miguel Shelton MD 08/15/16 Disposition: 01 DISCHARGE HOME Condition: Stable Марина Tavares MD Aug 15, 2016 23:19
--- NOTE | 2016-08-16 19:19 | EKG ---
Date Performed: 08/15/2016 Time Performed: 18:19:22 PTAGE: 85 years EKG: Sinus rhythm MINIMAL VOLTAGE CRITERIA FOR LVH, CONSIDER NORMAL VARIANT Compared to prior tracing no significant c connie DOCTOR: Wade Watters Interpretating Date/Time 08/16/2016 19:18:31
== END 2016-08-15 23:36 | disposition home or self-care (01) ==
LOC: NEPE 15:15
DX: R10.9 Unspecified abdominal pain (principal); T40.2X5A Adverse effect of other opioids, initial encounter; M19.90 Unspecified osteoarthritis, unspecified site; F41.8 Other specified anxiety disorders; J44.9 Chronic obstructive pulmonary disease, unspecified; I10 Essential (primary) hypertension; Y92.532 Urgent care center as the place of occurrence of the external cause
CPT/HCPCS: 74176; 80053; 81001; 83605; 83690; 85025; 85610; 85730; 93005; 96361; 96374; 96375; 99284; J1170; J1200; J2405; J2930; J7030

== ENCOUNTER 2016-10-12 08:19 | Inpatient (IN) | payer MEDICARE ==
[~2016-10-12] VITALS: Ht 162.6 cm; Wt 49.0 kg
[~2016-10-12 08:19] MED LIST changes: +FAMO1TAB37 PO; +MIRA33504 PO; +PRED20 PO
[2016-10-12 08:21] VITALS: BP 134/90; PULSE 77; RESP 16; TEMP 97.8; O2SAT 95
[2016-10-12] MEDS ORDERED: FORM20NE INH (08:42)
[2016-10-12] MEDS ORDERED: calcium PO (08:42)
[2016-10-12] MEDS ORDERED: LISI30TA4 PO (08:42)
[2016-10-12] MEDS ORDERED: OMEP40CA2 PO (08:42)
--- NOTE | 2016-10-12 08:42 | PD ---
HPI Chief Complaint: Neuro Symptoms/ Deficits Time Seen by Provider: 08:31 Travel History International Travel<30 days: No Contact w/Intl Traveler<30days: No Traveled to known affect area: No History of Present Illness HPI 85yo F with PMH of HTN, vertigo, recurrent UTI presents to the ED with c/o right upper and lower extremity weakness this morning. States she woke up at 5am and was unable to move her right arm and leg for about an hour. Symptoms improved on its own and now she feels just slightly weaker in the right side. Went to bed at 9pm or 10pm normal. Denies any fever, chest pain, sob, n/v, abdominal pain or focal numbness. Never had CVA before. PFSH Past Medical History Arthritis: Yes Blood Disorders: No Anxiety: Yes Depression: Yes Heart Rhythm Problems: No Cancer: Yes (lung cancer) Cardiac Catheterization: No Cardiovascular Problems: Yes High Cholesterol: No Chemotherapy: No Congestive Heart Failure: No COPD: Yes Diabetes: No Diminished Hearing: No Endocrine: No Glaucoma: No Genitourinary: No Hepatitis: No Hiatal Hernia: No Hypertension: Yes Immune Disorder: No Implanted Vascular Access Dvce: No Musculoskeletal: Yes (MILD ARTHRITIS IN HANDS) Neurologic: No Reproductive: No Respiratory: Yes (COPD) Myocardial Infarction: No Radiation Therapy: No Thyroid Disease: No Menopausal: Yes Past Surgical History Abdominal Surgery: Yes (gallbladder. appendectomy) AICD: No Appendectomy: Yes Cardiac Surgery: Yes (aortic/THORACIC aneurysm removal with stent placement x2) Cholecystectomy: Yes Coronary Artery Bypass Graft: No Eye Surgery: Yes (BILATERAL CATARACTS) Gynecologic Surgery: Yes Hysterectomy: Yes Joint Replacement: No Pacemaker: No Thoracic Surgery: Yes (right lung lobectomy ) Other Surgery: Yes (lumpectomy right lung) Social History Alcohol Use: Yes (occasional ) Tobacco Use: No Substance Use: No Allergies-Medications (Allergen,Severity, Reaction): Coded Allergies: Codeine (Verified Allergy, Severe, Hives, 10/12/16) Doxycycline (Verified Allergy, Severe, SEVERE RASH, 10/12/16) Morphine (Verified Allergy, Severe, 10/12/16) I DONT KNOW WHAT HAPPENS IT WAS SO LONG AGO Penicillin (Verified Allergy, Severe, Hives, 10/12/16) Sulfa (Verified Allergy, Severe, Hives, 10/12/16) Biaxin (Verified Allergy, Unknown, 10/12/16) Cipro (Verified Allergy, Unknown, 10/12/16) Clindamycin (Verified Allergy, Unknown, 10/12/16) Cultivated Oat Pollen (Verified Allergy, Unknown, 10/12/16) Lovastatin (Verified Allergy, Unknown, 10/12/16) Reglan (Verified Allergy, Unknown, 10/12/16) Shellfish (Verified Allergy, Unknown, 10/12/16) Reported Meds & Prescriptions Reported Meds & Active Scripts Active Pepcid (Famotidine) 20 Mg Tab 20 Mg PO BID Zofran (Ondansetron HCl) 4 Mg Tab 4 Mg PO Q6HR PRN Potassium Chloride ER (Potassium Chloride) 20 Meq Tab 20 Meq PO DAILY Reported Omeprazole 40 Mg Cap 40 Mg PO DAILY Perforomist Neb (Formoterol Fumarate) 20 Mcg/2 Ml Neb 1 Nebule INH BID [calcium ] 1,000 Mg PO DAILY Clonidine (Clonidine HCl) 0.1 Mg Tab 0.1 Mg PO Q8HR Zoloft (Sertraline HCl) 25 Mg Tab 75 Mg PO DAILY Alprazolam 0.25 Mg Tab 0.25 Mg PO HS PRN Latanoprost Opth Drops (Latanoprost) 0.005% Drops 1 Drop EACH EYE HS Refrigerate until opened. Brimonidine Opth Drops (Brimonidine Tartrate) 0.2% Soln 1 Drop LEFT EYE Q12HR Nifedipine ER 24 HR (Nifedipine) 30 Mg Tab 90 Mg PO DAILY Singulair (Montelukast Sodium) 10 Mg Tab 10 Mg PO DAILY Lisinopril 30 Mg Tab 30 Mg PO DAILY Review of Systems Except as stated in HPI: all other systems reviewed are Neg Physical Exam Narrative GENERAL: 85yo F not in distress. SKIN: Focused skin assessment warm/dry. HEAD: Atraumatic. Normocephalic. EYES: Pupils equal and round. No scleral icterus. No injection or drainage. ENT: No nasal bleeding or discharge. Mucous membranes pink and moist. NECK: Trachea midline. No JVD. CARDIOVASCULAR: Regular rate and rhythm. No murmur appreciated. RESPIRATORY: No accessory muscle use. Clear to auscultation. Breath sounds equal bilaterally. GASTROINTESTINAL: Abdomen soft, non-tender, nondistended. No rebound tenderness or guarding. MUSCULOSKELETAL: No obvious deformities. No clubbing. No cyanosis. No edema. NEUROLOGICAL: Awake and alert. No obvious cranial nerve deficits. Motor grossly within normal limits. Normal speech. NIH stroke scale of 0. PSYCHIATRIC: Appropriate mood and affect; insight and judgment normal. Data Data Last Documented VS Vital Signs Date Time Temp Pulse Resp B/P Pulse Ox O2 Delivery O2 Flow Rate FiO2 10/12/16 08:35 101 17 96 Room Air 10/12/16 08:21 97.8 134/90 Orders Complete Blood Count With Diff (10/12/16 08:37) Basic Metabolic Panel (Bmp) (10/12/16 08:37) Prothrombin Time / Inr (Pt) (10/12/16 08:37) Act Partial Throm Time (Ptt) (10/12/16 08:37) Ct Brain W/O Iv Contrast(Rout) (10/12/16 ) Magnesium (Mg) (10/12/16 08:42) Admit To Inpatient (10/12/16 ) Code Status (10/12/16 10:12) Vital Signs (Adult) Q4H (10/12/16 10:12) Activity Oob With Assistance (10/12/16 10:12) Process Area Supervisor / Telemetry .CONTINUOUS (10/12/16 10:12) Diet Heart Healthy (10/12/16 Lunch) Sodium Chloride 0.9% Flush (Ns Flush) (10/12/16 10:15) Sodium Chloride 0.9% Flush (Ns Flush) (10/12/16 21:00) Acetaminophen (Tylenol) (10/12/16 10:15) Ondansetron Inj (Zofran Inj) (10/12/16 10:15) Temazepam (Restoril) (10/12/16 10:15) Basic Metabolic Panel (Bmp) (10/13/16 06:00) Complete Blood Count With Diff (10/13/16 06:00) Chest, Single Ap (10/12/16 10:12) Electrocardiogram (10/12/16 10:12) Pt Request For Service (10/12/16 10:12) Scd Bilateral/Knee High NAEEM.BID (10/12/16 10:12) Naloxone Inj (Narcan Inj) (10/12/16 10:15) Magnesium Hydroxide Liq (Milk Of Magnesi (10/12/16 10:15) Inpatient Certification (10/12/16 ) Nursing Bedside Swallow Assess .ONCE (10/12/16 10:14) Thyroid Stimulating Hormone (10/12/16 10:14) Free Thyroxine (T4) (10/12/16 10:14) Rapid Plasma Regin (Rpr) W Ttr (10/12/16 10:14) Vitamin B12 (10/12/16 10:14) Folate, Serum (10/12/16 10:14) Ammonia (10/12/16 10:14) Echo 2d Comp With Doppler (10/12/16 ) Holter Monitor Recording (10/12/16 ) Us Carotid Arteries Comp Bilat (10/12/16 ) Mri Brain W&W/O Contrast (10/12/16 ) Mra Brain W/O Contrast (Cow) (10/12/16 ) Nih Stroke Scale - Nihss .On admission and discharge (10/12/16 10:16) Neuro Checks Q4H (10/12/16 10:16) Notify Dr: Other (10/12/16 10:16) Activity Bed Rest (10/12/16 10:16) Lipid Profile (10/13/16 06:00) Enalaprilat Inj (Vasotec Inj) (10/12/16 10:30) Aspirin (Aspirin) (10/12/16 10:30) Alprazolam (Xanax) (10/12/16 10:30) Brimonidine 0.2% Opth Soln (Alphagan 0.2 (10/12/16 21:00) Famotidine (Pepcid) (10/12/16 21:00) Latanoprost 0.005% Opth Soln (Xalatan 0. (10/12/16 21:00) Montelukast (Singulair) (10/13/16 09:00) Potassium Chloride (Kcl) (10/13/16 09:00) Sertraline (Zoloft) (10/13/16 09:00) (Nf) Omeprazole (10/12/16 10:30) Albuterol-Ipratropium Neb (Duoneb Neb) (10/12/16 10:30) Aspirin (Aspirin) (10/12/16 10:30) Admit Order (Ed Use Only) (10/12/16 10:22) Labs Laboratory Tests Test 10/12/16 08:43 White Blood Count 10.3 TH/MM3 Red Blood Count 4.42 MIL/MM3 Hemoglobin 12.8 GM/DL Hematocrit 37.4 % Mean Corpuscular Volume 84.7 FL Mean Corpuscular Hemoglobin 29.0 PG Mean Corpuscular Hemoglobin 34.2 % Concent Red Cell Distribution Width 15.8 % Platelet Count 242 TH/MM3 Mean Platelet Volume 8.7 FL Neutrophils (%) (Auto) 66.4 % Lymphocytes (%) (Auto) 23.3 % Monocytes (%) (Auto) 7.2 % Eosinophils (%) (Auto) 2.2 % Basophils (%) (Auto) 0.9 % Neutrophils # (Auto) 6.8 TH/MM3 Lymphocytes # (Auto) 2.4 TH/MM3 Monocytes # (Auto) 0.7 TH/MM3 Eosinophils # (Auto) 0.2 TH/MM3 Basophils # (Auto) 0.1 TH/MM3 CBC Comment DIFF FINAL Differential Comment Prothrombin Time 10.3 SEC Prothromb Time International 0.9 RATIO Ratio Activated Partial 26.7 SEC Thromboplast Time Sodium Level 139 MEQ/L Potassium Level 4.5 MEQ/L Chloride Level 106 MEQ/L Carbon Dioxide Level 24.8 MEQ/L Anion Gap 8 MEQ/L Blood Urea Nitrogen 18 MG/DL Creatinine 1.01 MG/DL Estimat Glomerular Filtration 52 ML/MIN Rate Random Glucose 94 MG/DL Calcium Level 9.6 MG/DL Magnesium Level 2.4 MG/DL [facility] Medical Decision Making Medical Screen Exam Complete: Yes Emergency Medical Condition: Yes Interpretation(s) EKG: NSR 83bpm. +PVC. Normal axis. No ST segment elevation or depression. Differential Diagnosis TIA vs. HTN emergency vs. conversion disorder Narrative Course 85yo F with c/o right arm and leg weakness this morning when she woke up at 5am. CT brain showed no acute intracranial hemorrhage. 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 Bilateral cortical atrophy and chronic white matter changes. Labs reviewed, no leukocytosis. BMP unremarkable. Pt given aspirin 325mg PO. Discussed with Dr. Fountain and admitted to his service for TIA work up. When MRI came to get patient, she said she is claustrophobic and last time they gave her something for it. I reviewed her record and last time she had MRI in 07/2016, she had IV ativan so will give 1mg ativan IV. Diagnosis Primary Impression: TIA (transient ischemic attack) Qualified Code: G45.9 - Transient cerebral ischemia, unspecified type Admitting Information Admitting Physician Requests: Dasha Cox DO Oct 12, 2016 08:42
[2016-10-12 09:07] LABS: AUTOMATED NEUTROPHIL # 6.8 TH/MM3 (1.8-7.7); BASOPHIL # 0.1 TH/MM3 (0-0.2); BASOPHIL % 0.9 % (0.0-2.0); EOSINOPHIL # 0.2 TH/MM3 (0-0.4); EOSINOPHIL % 2.2 % (0.0-4.0); HEMATOCRIT 37.4 % (35.0-46.0); HEMO FLAGS DIFF FINAL; LYMPH % 23.3 % (9.0-44.0); LYMPHOCYTE # 2.4 TH/MM3 (1.0-4.8); MEAN CELL VOLUME 84.7 FL (80.0-100.0); MEAN CORPUSCULAR HGB CONC 34.2 % (32.0-36.0); MONO % 7.2 % (0.0-8.0); NEUT % 66.4 % (16.0-70.0); PLATELET COUNT 242 TH/MM3 (150-450); RED BLOOD COUNT 4.42 MIL/MM3 (4.00-5.30); RED CELL DISTRIBUTION WIDTH 15.8 % (11.6-17.2); WHITE BLOOD COUNT 10.3 TH/MM3 (4.0-11.0)
[2016-10-12 09:16] LABS: APTT (PATIENT) 26.7 SEC (24.3-30.1); INTERNATIONAL NORMALIZED RATIO 0.9 RATIO; PROTHROMBIN TIME - PATIENT 10.3 SEC (9.8-11.6)
--- NOTE | 2016-10-12 09:18 | RADRPT ---
EXAM DATE/TIME: 10/12/2016 08:58 [facility] COMPARISON: No previous studies available for comparison. INDICATIONS : Unable to move right upper and right lower extremity this morning. RADIATION DOSE: 56.77 CTDIvol (mGy) MEDICAL HISTORY : Chronic obstructive pulmonary disease. Cardiovascular disease SURGICAL HISTORY : Lobectomy. Cholecystectomy.Appendectomy. ENCOUNTER: Initial ACUITY: 1 day PAIN SCALE: 0/10 LOCATION: Bilateral head TECHNIQUE: Multiple contiguous axial images were obtained of the head. Using automated exposure control and adj ustment of the mA and/or kV according to patient size, radiation dose was kept as low as reasonably a chievable to obtain optimal diagnostic quality images. DICOM format image data is available electro nically for review and comparison. FINDINGS: CEREBRUM: The ventricles are normal for age. There is bilateral cortical atrophy and chronic white matter ortega es. There is an old small lacunar infarct in right basal ganglia. No evidence of midline shift, mass lesion, hemorrhage or acute infarction. No extra-axial fluid collections are seen. POSTERIOR FOSSA: The cerebellum and brainstem are intact. The 4th ventricle is midline. The cerebellopontine angle i s unremarkable. EXTRACRANIAL: The visualized portion of the orbits is intact. SKULL: The calvaria is intact. No evidence of skull fracture. CONCLUSION: 1. No acute intracranial hemorrhage. 2. 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 3. Bilateral cortical atrophy and chronic white matter changes. Scott Queen MD on October 12, 2016 at 9:14 Board Certified Radiologist. This report was verified electronically.
[2016-10-12 09:23] LABS: BICARBONATE 24.8 MEQ/L (21.0-32.0); POTASSIUM 4.5 MEQ/L (3.5-5.1)
[2016-10-12] MEDS ORDERED: SODIUM CHLORIDE 0.9% FLUSH 10 ML FLUSH IV FLUSH PRN (10:15)
[2016-10-12] MEDS ORDERED: ACETAMINOPHEN 325 MG TAB PO PRN (10:15)
[2016-10-12] MEDS ORDERED: TEMAZEPAM 15 MG CAP PO PRN (10:15)
[2016-10-12] MEDS ORDERED: ONDANSETRON HCL 4 MG/2 ML VIAL IVP PRN (10:15)
[2016-10-12] MEDS ORDERED: MAGNESIUM HYDROXIDE SUSP 30 ML CUP PO PRN (10:15)
[2016-10-12] MEDS ORDERED: NALOXONE HCL 0.4 MG/ML AMP IV PRN (10:15)
[2016-10-12] MEDS ORDERED: ASPIRIN 325 MG TAB PO ONE (10:30)
[2016-10-12] MEDS ORDERED: RESP: ALBUTEROL 2.5 MG/IPRATROPIUM 0.5 MG NEB (PRN) NEB ×2 (10:30→17:00)
[2016-10-12] MEDS ORDERED: ENALAPRILAT 1.25 MG/ML VIAL IV PRN (10:30)
[2016-10-12] MEDS ORDERED: ALPRAZolam 0.25 MG TAB PO PRN (10:30)
[2016-10-12] MEDS ORDERED: LORazepam 2 MG/ML VIAL IV PUSH ONE (10:45)
[2016-10-12] MEDS ORDERED: PILL SPLITTER OTHER PRN (10:45)
[2016-10-12] MEDS ORDERED: GADODIAMIDE PF 287 MG/ML 10 ML VIAL (for RAD MRI) IV ONE (10:56)
--- NOTE | 2016-10-12 11:00 | RADRPT ---
EXAM DATE/TIME: 10/12/2016 10:28 [facility] COMPARISON: CHEST SINGLE AP, October 06, 2013, 3:15. INDICATIONS : Shortness of breath. MEDICAL HISTORY : Chronic obstructive pulmonary disease. Cardiovascular disease. SURGICAL HISTORY : Lobectomy. Cholecystectomy.Appendectomy. ENCOUNTER: Initial ACUITY: 1 day PAIN SCORE: 0/10 LOCATION: Bilateral chest FINDINGS: A single view of the chest demonstrates the lungs to be symmetrically aerated without evidence of mas s, infiltrate or effusion. There is hyperaeration of both lung yusuf. There is chronic interstitial changes bilaterally. The cardiomediastinal contours are unremarkable. There is a stent within the andrew cending thoracic aorta. Osseous structures are intact with scoliosis and curvature of the thoracic sp ine to the right.. CONCLUSION: 1. Hyperaeration of both lung yusuf with chronic bilateral interstitial lung changes. These findings suggest COPD. 2. No acute pulmonary infiltrates. 3. Moderate scoliosis of the thoracic spine with curvature to the right. Scott Queen MD on October 12, 2016 at 10:57 Board Certified Radiologist. This report was verified electronically.
--- NOTE | 2016-10-12 11:21 | RADRPT ---
EXAM DATE/TIME: 10/12/2016 10:45 [facility] COMPARISON: No previous studies available for comparison. INDICATIONS : TIA. Bilateral upper extremity weakness. MEDICAL HISTORY : Aneurysm, abdominal. Chronic obstructive pulmonary disease. Carcinoma, lung. SURGICAL HISTORY : Lobectomy. Abdominal aortic aneurysm repair. Appendectomy. Cholecystectomy. ENCOUNTER: Initial ACUITY: 1 day PAIN SCORE: 0/10 LOCATION: cranial Please note a normal MRA of the brain does not entirely exclude the possibility of a small aneurysm, nor the possibility of distal intracranial vessel disease. TECHNIQUE: 3D time of flight MRA was performed. Source images, multiplanar STS MIP, and 3D volume MIP reconstru ctions were reviewed. FINDINGS: There is excellent visualization of the major intracranial arteries out to the second-order branch ve ssels. There is no evidence for aneurysm, vessel truncation or stenosis, and no evidence for vascula r malformation. The A1 segment on the right is hypoplastic. CONCLUSION: Unremarkable exam for patient's age. Scott Queen MD on October 12, 2016 at 11:16 Board Certified Radiologist. This report was verified electronically.
--- NOTE | 2016-10-12 11:36 | RADRPT ---
EXAM DATE/TIME: 10/12/2016 10:45 [facility] COMPARISON: MRI BRAIN W/O CONTRAST, August 03, 2016, 14:26. CT BRAIN W/O CONTRAST, October 12, 2016, 8:58. INDICATIONS : TIA. CONTRAST: 10 cc Omniscan (gadodiamide) IV MEDICAL HISTORY : Carcinoma, lung. Aneurysm, abdominal. Chronic obstructive pulmonary disease. hypertension. SURGICAL HISTORY : Abdominal aortic aneurysm repair. Hysterectomy. Lobectomy. Cholecystectomy. ENCOUNTER: Initial ACUITY: 1 day PAIN SCORE: 0/10 LOCATION: cranial TECHNIQUE: Multiplanar, multisequence MRI of the brain was performed both prior to and following the administrat ion of paramagnetic contrast. FINDINGS: CEREBRUM: The ventricles are normal for age. There is stable bilateral cortical atrophy. There is an old stable tiny right lacunar infarct. No evidence of midline shift, mass lesion, hemorrhage or acute infarctio n. No extraaxial fluid collections are seen. The pituitary gland and suprasellar cistern are normal in configuration. WHITE MATTER: There are chronic white matter changes bilaterally characteristics of ischemic demyelinization. This is not significantly changed compared to the prior study. POSTERIOR FOSSA: The cerebellum and brainstem are intact. The 4th ventricle is midline. The cerebellopontine angle is unremarkable. The cerebellar tonsils are normal in position. DIFFUSION IMAGING: New single focus of increased signal in the left mid parietal lobe measuring 8 mm indicating a new sm all focal infarct. EXTRACRANIAL: The visualized portions of the orbits and paranasal sinuses are unremarkable. POST-CONTRAST: No abnormal areas of parenchymal or dural enhancement. No evidence of blood-brain barrier breakdown. CONCLUSION: 1. New 8mm focal acute infarct in the mid left parietal lobe. 2. Stable old small right basal ganglia infarct. 3. Stable bilateral cortical atrophy and chronic white matter changes. Scott Queen MD on October 12, 2016 at 11:30 Board Certified Radiologist. This report was verified electronically.
[2016-10-12] MEDS: PANTOPRAZOLE SOD 40 MG DELAYED RELEASE TAB PO SCH (11:49)
--- NOTE | 2016-10-12 11:51 | RADRPT ---
EXAM DATE/TIME: 10/12/2016 11:15 [facility] COMPARISON: No previous studies available for comparison. INDICATIONS : Transient ischemic attack. MEDICAL HISTORY : Chronic obstructive pulmonary disease. Arthritis. Hypertension. Depression. Anxiety. Lung cancer. Nellie sles. SURGICAL HISTORY : Hysterectomy. Cholecystectomy. Appendectomy. Right lung lumpectomy. Bilateral cataract removal. Aorti c thoracic aneurysm repair with stent placement. ENCOUNTER: Initial ACUITY: 1 day PAIN SCORE: 0/10 LOCATION: Bilateral neck PEAK SYSTOLIC VELOCITIES (cm/sec): ICA/CCA RATIO: Right: 0.9 Left: 2.0 ICA: Right: 58 Left: 101 CCA: Right: 65 Left: 50 ECA: Right: 50 Left: 44 VERTEBRAL: Right: 46 antegrade Left: 42 antegrade Elevated flow velocities and ICA/CCA ratios have been found to correlate with increased degrees of vessel stenosis, calculated as percentage of diameter relative to a normal segment of distal ICA/CCA FINDINGS: RIGHT CAROTID: Mild to moderate atherosclerotic plaquing is noted the bifurcation. No significant stenosis is visual ized. The waveforms are within normal limits. LEFT CAROTID: Mild to moderate vascular plaquing is noted the bifurcation. No significant stenosis is visualized. The waveforms are within normal limits. VERTEBRAL ARTERIES: Antegrade flow is seen in both vertebral arteries. MISCELLANEOUS: None. CONCLUSION: 1. There is mild to moderate atherosclerotic plaquing at both carotid bifurcations. 2. No focal high grade or hemodynamically significant stenosis. Scott Queen MD on October 12, 2016 at 11:47 Board Certified Radiologist. This report was verified electronically.
--- NOTE | 2016-10-12 12:15 | EKG ---
Date Performed: 10/12/2016 Time Performed: 08:43:08 PTAGE: 85 years EKG: Sinus rhythm WITH SHORT CT INTERVAL WITH OCCASIONAL VENTRICULAR PREMATURE COMPLEXES Since previous tracing, no si gnificant change noted BORDERLINE ECG PREVIOUS TRACING : 08/15/2016 18.19 DOCTOR: Shin Perdomo Interpretating Date/Time 10/12/2016 12:14:09
[2016-10-12 12:50] VITALS: BP 117/62; PULSE 93; RESP 16; TEMP 97.6; O2SAT 94
[2016-10-12 14:31] LABS: FREE T4 0.95 NG/DL (0.76-1.46)
[2016-10-12 16:00] VITALS: BP 104/67; PULSE 87; RESP 17; TEMP 97.5; O2SAT 93
--- NOTE | 2016-10-12 16:59 | HHI.HP ---
HPI Service [facility] Hospitalists Primary Care Physician Gricelda Nieto MD Admission Diagnosis TIA Chief Complaint: right sided weakness Travel History International Travel<30 Days: No Contact w/Intl Traveler <30 Da: No Traveled to Known Affected Are: No History of Present Illness Patient states that she was in her usual state of health when she went to bed last night. She awoke early in the morning and was unable to move her right arm and right leg. Over a few hours these symptoms gradually improved. However, she had continued relative weakness on the right side and was convinced to come to [place] later in the morning by her daughter. Patient denies any difficulty with speech, word finding, or swallowing. Patient denies previous episodes of same. MRI of the brain (10/12/16) shows new 8 mm focal infarct in the left parietal region. Review of Systems Constitutional: DENIES: Diaphoretic episodes, Fatigue, Fever, Weight gain, Weight loss, Chills, Dizziness, Change in appetite, Night Sweats Endocrine: DENIES: Heat/cold intolerance, Polydipsia, Polyuria, Polyphagia Eyes: DENIES: Blurred vision, Diplopia, Eye inflammation, Eye pain, Vision loss , Photosensitivity, Double Vision Ears, nose, mouth, throat: DENIES: Tinnitus, Hearing loss, Vertigo, Nasal discharge, Oral lesions, Throat pain, Hoarseness, Ear Pain, Running Nose, Epistaxis, Sinus Pain, Toothache, Odynophagia Respiratory: DENIES: Apneas, Cough, Snoring, Wheezing, Hemoptysis, Sputum production, Shortness of breath Cardiovascular: DENIES: Chest pain, Palpitations, Syncope, Dyspnea on Exertion , PND, Lower Extremity Edema, Orthopnea, Claudication Gastrointestinal: DENIES: Abdominal pain, Black stools, Bloody stools, BRB per rectum, Constipation, Diarrhea, GERD, Nausea, Reflux, Vomiting, Difficulty Swallowing, Anorexia Genitourinary: DENIES: Urinary frequency, Urinary incontinence, Urgency, Hematuria, Dysuria, Nocturia Musculoskeletal: DENIES: Joint pain, Muscle aches, Stiffness, Joint Swelling, Back pain, Neck pain Integumentary: DENIES: Abnormal pigmentation, Pruritus, Rash, Nail changes, Breast masses, Breast skin changes, Nipple discharge Hematologic/lymphatic: DENIES: Bruising, Lymphadenopathy Immunologic/allergic: DENIES: Eczema, Urticaria Neurologic: COMPLAINS OF: Localized weakness, DENIES: Abnormal gait, Headache , Paresthesias, Seizures, Speech Problems, Tremor, Poor Balance Psychiatric: DENIES: Anxiety, Confusion, Mood changes, Depression, Hallucinations, Agitation, Suicidal Ideation, Homicidal Ideation, Delusions, History of Bipolar, History of Schizophrenia Past Family Social History Past Medical History 1) abdominal aortic aneurysm 2) thoracic aorta aneurysm 3) hypertension 4) COPD 5) glaucoma 6) GERD 7) depression 8) adenocarcinoma of the lung, status post right lower lobe resection Past Surgical History 1) AAA, status post stent graft ascending aorta 2) laparoscopic cholecystectomy 3) hysterectomy 4) appendectomy 5) colonoscopy 6) EGD 7) diverticulectomy of the esophagus by cervical approach 8) lung lobectomy Reported Medications Reported Meds & Active Scripts Active Pepcid (Famotidine) 20 Mg Tab 20 Mg PO BID Zofran (Ondansetron HCl) 4 Mg Tab 4 Mg PO Q6HR PRN Potassium Chloride ER (Potassium Chloride) 20 Meq Tab 20 Meq PO DAILY Reported Omeprazole 40 Mg Cap 40 Mg PO DAILY Perforomist Neb (Formoterol Fumarate) 20 Mcg/2 Ml Neb 1 Nebule INH BID [calcium ] 1,000 Mg PO DAILY Clonidine (Clonidine HCl) 0.1 Mg Tab 0.1 Mg PO Q8HR Zoloft (Sertraline HCl) 25 Mg Tab 75 Mg PO DAILY Alprazolam 0.25 Mg Tab 0.25 Mg PO HS PRN Latanoprost Opth Drops (Latanoprost) 0.005% Drops 1 Drop EACH EYE HS Refrigerate until opened. Brimonidine Opth Drops (Brimonidine Tartrate) 0.2% Soln 1 Drop LEFT EYE Q12HR Nifedipine ER 24 HR (Nifedipine) 30 Mg Tab 90 Mg PO DAILY Singulair (Montelukast Sodium) 10 Mg Tab 10 Mg PO DAILY Lisinopril 30 Mg Tab 30 Mg PO DAILY Allergies: Coded Allergies: Codeine (Verified Allergy, Severe, Hives, 10/12/16) Doxycycline (Verified Allergy, Severe, SEVERE RASH, 10/12/16) Morphine (Verified Allergy, Severe, 10/12/16) I DONT KNOW WHAT HAPPENS IT WAS SO LONG AGO Penicillin (Verified Allergy, Severe, Hives, 10/12/16) Sulfa (Verified Allergy, Severe, Hives, 10/12/16) Biaxin (Verified Allergy, Unknown, 10/12/16) Cipro (Verified Allergy, Unknown, 10/12/16) Clindamycin (Verified Allergy, Unknown, 10/12/16) Cultivated Oat Pollen (Verified Allergy, Unknown, 10/12/16) Lovastatin (Verified Allergy, Unknown, 10/12/16) Reglan (Verified Allergy, Unknown, 10/12/16) Shellfish (Verified Allergy, Unknown, 10/12/16) Family History Noncontributory Social History - Former smoker - No alcohol - No illicit street drugs Physical Exam Vital Signs Vital Signs Date Time Temp Pulse Resp B/P Pulse Ox O2 Delivery O2 Flow Rate FiO2 10/12/16 16:00 97.5 87 17 104/67 93 10/12/16 12:50 97.6 93 16 117/62 94 10/12/16 08:35 101 17 96 Room Air 10/12/16 08:21 97.8 77 16 134/90 95 Physical Exam GENERAL: This is a well-nourished, well-developed patient, in no apparent distress. SKIN: No rashes, ecchymoses or lesions. Cool and dry. HEAD: Atraumatic. Normocephalic. No temporal or scalp tenderness. EYES: Pupils equal round and reactive. Extraocular motions intact. No scleral icterus. No injection or drainage. ENT: Nose without bleeding, purulent drainage or septal hematoma. Throat without erythema, tonsillar hypertrophy or exudate. Uvula midline. Airway patent. NECK: Trachea midline. No JVD or lymphadenopathy. Supple, nontender, no meningeal signs. CARDIOVASCULAR: Regular rate and rhythm without murmurs, gallops, or rubs. RESPIRATORY: Clear to auscultation. Breath sounds equal bilaterally. No wheezes , rales, or rhonchi. GASTROINTESTINAL: Abdomen soft, non-tender, nondistended. No hepato-splenomegaly , or palpable masses. No guarding. MUSCULOSKELETAL: Extremities without clubbing, cyanosis, or edema. No joint tenderness, effusion, or edema noted. No calf tenderness. Negative Homans sign bilaterally. NEUROLOGICAL: Awake and alert. Cranial nerves II through XII intact. Motor and sensory grossly within normal limits. Right-sided weakness. Normal speech. Laboratory Laboratory Tests Test 10/12/16 08:43 White Blood Count 10.3 Red Blood Count 4.42 Hemoglobin 12.8 Hematocrit 37.4 Mean Corpuscular Volume 84.7 Mean Corpuscular Hemoglobin 29.0 Mean Corpuscular Hemoglobin 34.2 Concent Red Cell Distribution Width 15.8 Platelet Count 242 Mean Platelet Volume 8.7 Neutrophils (%) (Auto) 66.4 Lymphocytes (%) (Auto) 23.3 Monocytes (%) (Auto) 7.2 Eosinophils (%) (Auto) 2.2 Basophils (%) (Auto) 0.9 Neutrophils # (Auto) 6.8 Lymphocytes # (Auto) 2.4 Monocytes # (Auto) 0.7 Eosinophils # (Auto) 0.2 Basophils # (Auto) 0.1 CBC Comment DIFF FINAL Differential Comment Prothrombin Time 10.3 Prothromb Time International 0.9 Ratio Activated Partial 26.7 Thromboplast Time Sodium Level 139 Potassium Level 4.5 Chloride Level 106 Carbon Dioxide Level 24.8 Anion Gap 8 Blood Urea Nitrogen 18 Creatinine 1.01 Estimat Glomerular Filtration 52 Rate Random Glucose 94 Calcium Level 9.6 Magnesium Level 2.4 Vitamin B12 Level 630 Folate GREATER THAN 20.0 Free Thyroxine 0.95 Thyroid Stimulating Hormone 3.420 3rd Gen Result Diagram: 10/12/16 0843 10/12/16 0843 Imaging Last Impressions Chest X-Ray 10/12/16 1012 Signed Impressions: Service Date/Time: Wednesday, October 12, 2016 10:28 - CONCLUSION: 1. Hyperaeration of both lung yusuf with chronic bilateral interstitial lung changes. These findings suggest COPD. 2. No acute pulmonary infiltrates. 3. Moderate scoliosis of the thoracic spine with curvature to the right. Scott Queen MD Head Magnetic Resonance Angiography 10/12/16 0000 Signed Impressions: Service Date/Time: Wednesday, October 12, 2016 10:45 - CONCLUSION: Unremarkable exam for patient's age. Scott Queen MD Head CT 10/12/16 0000 Signed Impressions: Service Date/Time: Wednesday, October 12, 2016 08:58 - CONCLUSION: 1. No acute intracranial hemorrhage. 2. 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 3. Bilateral cortical atrophy and chronic white matter changes. Scott Queen MD Carotid Artery Ultrasound 10/12/16 0000 Signed Impressions: Service Date/Time: Wednesday, October 12, 2016 11:15 - CONCLUSION: 1. There is mild to moderate atherosclerotic plaquing at both carotid bifurcations. 2. No focal high grade or hemodynamically significant stenosis. Scott Queen MD Brain MRI 10/12/16 0000 Signed Impressions: Service Date/Time: Wednesday, October 12, 2016 10:45 - CONCLUSION: 1. New 8mm focal acute infarct in the mid left parietal lobe. 2. Stable old small right basal ganglia infarct. 3. Stable bilateral cortical atrophy and chronic white matter changes. Scott Queen MD Septic Shock Reassessment Heart: Regular rate and rhythm Lungs: Clear Skin: Warm Peripheral Pulses: Bounding Right Radial Bounding Left Radial Bounding Right Popliteal Bounding Left Popliteal Bounding Right Dorsalis Pedis Bounding Left Dorsalis Pedis Bounding Right Posterior Tibial Bounding Left Posterior Tibial Capillary Refill: Brisk Assessment and Plan Problem List: (1) CVA (cerebral vascular accident) Status: Acute Plan: - Patient presented with complaint of RLE and RUE weakness, which gradually improved over time at home - CT brain (10/12/16) no acute findings - MRI brain (10/12/16) 8 mm left parietal acute infarct - Bilateral carotid ultrasound (10/12/16) no hemodynamically significant stenosis - MRA brain (10/12/16) unremarkable - Allow permissive hypertension - IVFs - observe on telemetry - obtain holter monitor - obtain echocardiogram - obtain fasting lipid panel - pt started on ASA 325mg daily - obtain PT evaluation (2) Hypertension Status: Chronic Plan: - see above (3) COPD (chronic obstructive pulmonary disease) Status: Chronic Plan: - Symbicort - duonebs prn (4) History of lung cancer Status: Resolved (5) Depression Status: Chronic Plan: - juan david [place] Physician Certification 2 Midnight Certification Type: Admission for Inpatient Services Order for Inpatient Services The services are ordered in accordance with Medicare regulations or non- Medicare payer requirements, as applicable. In the case of services not specified as inpatient-only, they are appropriately provided as inpatient services in accordance with the 2-midnight benchmark. Estimated LOS (days): 3 3 days is the estimated time the patient will need to remain in the hospital, assuming treatment plan goals are met and no additional complications. Post-Hospital Plan: Not yet determined Problem Qualifiers (1) Hypertension: Qualified Code: I10 - Essential hypertension (2) COPD (chronic obstructive pulmonary disease): Qualified Code: J44.9 - Chronic obstructive pulmonary disease, unspecified COPD type (3) Depression: Qualified Code: F32.9 - Depression, unspecified depression type Alvin Fountain DO Oct 12, 2016 16:59
[2016-10-12 18:00] VITALS: PULSE 85
[2016-10-12] MEDS ORDERED: SODIUM CHLOR 0.9% 1000 ML INJ 1,000 ML IV SCH (19:00)
[2016-10-12 20:00] VITALS: BP 133/81; PULSE 78; RESP 18; TEMP 97.2; O2SAT 93
[2016-10-12] MEDS: SODIUM CHLORIDE 0.9% FLUSH 10 ML FLUSH IV FLUSH SCH (21:00)
[2016-10-12] MEDS: LATANOPROST 0.005% OPHT SOLN 2.5 ML BTL EACH EYE SCH (21:31)
[2016-10-12] MEDS: FAMOTIDINE 20 MG TAB PO SCH (21:31)
[2016-10-12] MEDS: BRIMONIDINE TARTRATE 0.2% OPHT SOLN 5 ML BTL LEFT EYE SCH (21:31)
[2016-10-12] MEDS: BUDESONIDE-FORMOTEROL 160/4.5 MCG INHALER INH SCH (21:32)
[2016-10-13] VITALS (8 sets, daily range): BP systolic 128–154; BP diastolic 71–93; PULSE 65–88; RESP 18–20; TEMP 96.2–98.6; O2SAT 93–95
[2016-10-13] MEDS: POTASSIUM CHLORIDE 20 MEQ CONTROLLED RELEASE TAB PO SCH (08:39)
[2016-10-13] MEDS: FAMOTIDINE 20 MG TAB PO SCH ×2 (08:39→21:23)
[2016-10-13] MEDS: PANTOPRAZOLE SOD 40 MG DELAYED RELEASE TAB PO SCH (08:39)
[2016-10-13] MEDS: SERTRALINE HCL 50 MG TAB PO SCH (08:39)
[2016-10-13] MEDS: ASPIRIN 325 MG TAB PO SCH (08:39)
[2016-10-13] MEDS: MONTELUKAST SODIUM 10 MG TAB PO SCH (08:39)
[2016-10-13] MEDS: BUDESONIDE-FORMOTEROL 160/4.5 MCG INHALER INH SCH ×2 (08:40→21:00)
[2016-10-13] MEDS: SODIUM CHLORIDE 0.9% FLUSH 10 ML FLUSH IV FLUSH SCH ×2 (08:40→21:23)
[2016-10-13] MEDS: BRIMONIDINE TARTRATE 0.2% OPHT SOLN 5 ML BTL LEFT EYE SCH ×2 (08:41→21:00)
[2016-10-13 10:44] LABS: AUTOMATED NEUTROPHIL # 4.6 TH/MM3 (1.8-7.7); BASOPHIL % 0.6 % (0.0-2.0); EOSINOPHIL # 0.2 TH/MM3 (0-0.4); EOSINOPHIL % 2.8 % (0.0-4.0); HEMATOCRIT 35.5 % (35.0-46.0); HEMO FLAGS DIFF FINAL; LYMPH % 27.7 % (9.0-44.0); LYMPHOCYTE # 2.1 TH/MM3 (1.0-4.8); MEAN CELL VOLUME 84.8 FL (80.0-100.0); MEAN CORPUSCULAR HEMOGLOBIN 28.6 PG (27.0-34.0); MEAN CORPUSCULAR HGB CONC 33.7 % (32.0-36.0); MONO % 7.2 % (0.0-8.0); NEUT % 61.7 % (16.0-70.0); PLATELET COUNT 221 TH/MM3 (150-450); RED BLOOD COUNT 4.19 MIL/MM3 (4.00-5.30); RED CELL DISTRIBUTION WIDTH 16.4 % (11.6-17.2); WHITE BLOOD COUNT 7.5 TH/MM3 (4.0-11.0)
[2016-10-13 11:14] LABS: HDL CHOLESTEROL 42.5 MG/DL (40.0-60.0); POTASSIUM 3.8 MEQ/L (3.5-5.1)
--- NOTE | 2016-10-13 11:59 | HHI.PR ---
Subjective Remarks Pt without any specific complaints She has been ambulating without difficulty Objective Vitals Vital Signs Date Time Temp Pulse Resp B/P Pulse Ox O2 Delivery O2 Flow Rate FiO2 10/13/16 08:03 97.8 74 18 142/91 93 10/13/16 04:00 98.6 71 20 144/91 95 10/13/16 00:00 97.9 73 20 132/71 93 10/12/16 20:00 97.2 78 18 133/81 93 10/12/16 18:00 85 10/12/16 16:00 97.5 87 17 104/67 93 10/12/16 12:50 97.6 93 16 117/62 94 10/12/16 10/12/16 10/13/16 15:00 23:00 07:00 Intake Total 760 ml Balance 760 ml Intake Oral 60 ml IV Total 700 ml # Voids 1 2 # Bowel Movements 0 Result Diagram: 10/13/16 0943 10/13/16 0943 Other Results Laboratory Tests Test 10/12/16 10/12/16 10/13/16 08:43 16:33 09:43 White Blood Count 10.3 TH/MM3 7.5 TH/MM3 Red Blood Count 4.42 MIL/MM3 4.19 MIL/MM3 Hemoglobin 12.8 GM/DL 12.0 GM/DL Hematocrit 37.4 % 35.5 % Mean Corpuscular Volume 84.7 FL 84.8 FL Mean Corpuscular Hemoglobin 29.0 PG 28.6 PG Mean Corpuscular Hemoglobin 34.2 % 33.7 % Concent Red Cell Distribution Width 15.8 % 16.4 % Platelet Count 242 TH/MM3 221 TH/MM3 Mean Platelet Volume 8.7 FL 8.8 FL Neutrophils (%) (Auto) 66.4 % 61.7 % Lymphocytes (%) (Auto) 23.3 % 27.7 % Monocytes (%) (Auto) 7.2 % 7.2 % Eosinophils (%) (Auto) 2.2 % 2.8 % Basophils (%) (Auto) 0.9 % 0.6 % Neutrophils # (Auto) 6.8 TH/MM3 4.6 TH/MM3 Lymphocytes # (Auto) 2.4 TH/MM3 2.1 TH/MM3 Monocytes # (Auto) 0.7 TH/MM3 0.5 TH/MM3 Eosinophils # (Auto) 0.2 TH/MM3 0.2 TH/MM3 Basophils # (Auto) 0.1 TH/MM3 0.0 TH/MM3 CBC Comment DIFF FINAL DIFF FINAL Differential Comment Prothrombin Time 10.3 SEC Prothromb Time International 0.9 RATIO Ratio Activated Partial 26.7 SEC Thromboplast Time Sodium Level 139 MEQ/L 140 MEQ/L Potassium Level 4.5 MEQ/L 3.8 MEQ/L Chloride Level 106 MEQ/L 108 MEQ/L Carbon Dioxide Level 24.8 MEQ/L 26.0 MEQ/L Anion Gap 8 MEQ/L 6 MEQ/L Blood Urea Nitrogen 18 MG/DL 16 MG/DL Creatinine 1.01 MG/DL 0.89 MG/DL Estimat Glomerular Filtration 52 ML/MIN 60 ML/MIN Rate Random Glucose 94 MG/DL 117 MG/DL Calcium Level 9.6 MG/DL 8.7 MG/DL Magnesium Level 2.4 MG/DL Vitamin B12 Level 630 PG/ML Folate GREATER THAN 20.0 NG/ML Free Thyroxine 0.95 NG/DL Thyroid Stimulating Hormone 3.420 uIU/ML 3rd Gen Ammonia 29 MCMOL/L Triglycerides Level 104 MG/DL Cholesterol Level 215 MG/DL LDL Cholesterol 152 MG/DL HDL Cholesterol 42.5 MG/DL Cholesterol/HDL Ratio 5.05 RATIO Imaging Last Impressions Chest X-Ray 10/12/16 1012 Signed Impressions: Service Date/Time: Wednesday, October 12, 2016 10:28 - CONCLUSION: 1. Hyperaeration of both lung yusuf with chronic bilateral interstitial lung changes. These findings suggest COPD. 2. No acute pulmonary infiltrates. 3. Moderate scoliosis of the thoracic spine with curvature to the right. Scott Queen MD Head Magnetic Resonance Angiography 10/12/16 0000 Signed Impressions: Service Date/Time: Wednesday, October 12, 2016 10:45 - CONCLUSION: Unremarkable exam for patient's age. Scott Queen MD Head CT 10/12/16 0000 Signed Impressions: Service Date/Time: Wednesday, October 12, 2016 08:58 - CONCLUSION: 1. No acute intracranial hemorrhage. 2. 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 3. Bilateral cortical atrophy and chronic white matter changes. Scott Queen MD Carotid Artery Ultrasound 10/12/16 0000 Signed Impressions: Service Date/Time: Wednesday, October 12, 2016 11:15 - CONCLUSION: 1. There is mild to moderate atherosclerotic plaquing at both carotid bifurcations. 2. No focal high grade or hemodynamically significant stenosis. Scott Queen MD Brain MRI 10/12/16 0000 Signed Impressions: Service Date/Time: Wednesday, October 12, 2016 10:45 - CONCLUSION: 1. New 8mm focal acute infarct in the mid left parietal lobe. 2. Stable old small right basal ganglia infarct. 3. Stable bilateral cortical atrophy and chronic white matter changes. Scott Queen MD Objective Remarks General: NAD, AAOx3 Chest: CTA Cardiac: Regular Abd: +BS, soft ND/NT Ext: No edema Neuro: Moves all four extremities, no appreciable weakness A/P Problem List: (1) CVA (cerebral vascular accident) Status: Acute Plan: - Patient presented with complaint of RLE and RUE weakness, which gradually improved over time at home - CT brain (10/12/16) no acute findings - MRI brain (10/12/16) 8 mm left parietal acute infarct - Bilateral carotid ultrasound (10/12/16) no hemodynamically significant stenosis - MRA brain (10/12/16) unremarkable - Allow permissive hypertension - Stop IVFs - Telemetry with some tachycardia noted, not clearly A. fib/flutter - Await Holter monitor - 2D echocardiogram pending - FLP with LDL 152, start Lipitor - Cont. ASA 325mg daily - PT daily (2) Hypertension Status: Chronic Plan: - see above (3) COPD (chronic obstructive pulmonary disease) Status: Chronic Plan: - Symbicort - duonebs prn (4) History of lung cancer Status: Resolved (5) Depression Status: Chronic Plan: - zoloft, xanax Assessment and Plan Patient examined. Assessment and plan formulated with Madelaine Abreu PA-C. I agree with the above. acute left parietal cva. possible atherosclerosis and ischemia.. need to exclude embolic source. echo and holter pending. pt on asa/statin. neuro deficits to include hemiparalysis resolved and doing well with PT. Problem Qualifiers (1) Hypertension: Qualified Code: I10 - Essential hypertension (2) COPD (chronic obstructive pulmonary disease): Qualified Code: J44.9 - Chronic obstructive pulmonary disease, unspecified COPD type (3) Depression: Qualified Code: F32.9 - Depression, unspecified depression type Madelaine Abreu Oct 13, 2016 11:59 Saman Burroughs MD Oct 13, 2016 12:04
[2016-10-13 14:46] LABS: RAPID PLASMA REAGIN SCREEN NON-REACTIVE (NON-REACTVE)
[2016-10-13] MEDS ORDERED: ATORVASTATIN 10 MG TAB PO SCH (21:00)
[2016-10-13] MEDS: LATANOPROST 0.005% OPHT SOLN 2.5 ML BTL EACH EYE SCH (21:00)
[2016-10-14 00:15] VITALS: BP 138/88; PULSE 75; RESP 19; TEMP 98.8; O2SAT 96
[2016-10-14 04:00] VITALS: BP 148/82; PULSE 82; RESP 20; TEMP 97.9; O2SAT 96
[2016-10-14] MEDS: POTASSIUM CHLORIDE 20 MEQ CONTROLLED RELEASE TAB PO SCH (08:09)
[2016-10-14] MEDS: SERTRALINE HCL 50 MG TAB PO SCH (08:09)
[2016-10-14] MEDS: FAMOTIDINE 20 MG TAB PO SCH (08:09)
[2016-10-14] MEDS: MONTELUKAST SODIUM 10 MG TAB PO SCH (08:09)
[2016-10-14] MEDS: ASPIRIN 325 MG TAB PO SCH (08:09)
[2016-10-14] MEDS: BRIMONIDINE TARTRATE 0.2% OPHT SOLN 5 ML BTL LEFT EYE SCH (08:09)
[2016-10-14] MEDS: PANTOPRAZOLE SOD 40 MG DELAYED RELEASE TAB PO SCH (08:09)
[2016-10-14] MEDS: SODIUM CHLORIDE 0.9% FLUSH 10 ML FLUSH IV FLUSH SCH (08:10)
[2016-10-14] MEDS: BUDESONIDE-FORMOTEROL 160/4.5 MCG INHALER INH SCH (08:10)
[2016-10-14 08:14] VITALS: BP 123/98; PULSE 75; RESP 16; TEMP 95.7; O2SAT 96
--- NOTE | 2016-10-14 08:40 | HM ---
Date Performed: 10/12/2016 Time Performed: 14:05:00 HOOKUP DATE: 10/12/16 02:05:00 PM Sun ANALYSIS START TIME: 10/12/2016 2:10:00 PM ANALYSIS END TIME: 10/13/2016 2:13:59 PM PATIENT AGE: 85 PATIENT HEIGHT PATIENT WEIGHT DRUG LIST PATIENT DIAGNOSIS: neuro TEST NARRATIVE: The patient's average heart rate was 78 BPM. Heart rates greater than 120 B PM were noted 1% of the time. No episodes of bradycardia were noted. No pauses exceeding 2.0 sec onds were noted. 3147 ventricular ectopics, which represented 3% of the total beat count, were no yanely. The highest ventricular ectopic frequency occurred from 05:00 PM to 06:00 PM Sun. During this time 542 VE(s) occurred. Ventricular ectopics were observed as 3143 isolated beat(s) and as 2 couple t(s). No runs were noted. Some of the ventricular beats occurred in bigeminal cycles. 150 supra ventricular ectopics, which represented < 1% of the total beat count, were noted. The highest suprav entricular ectopic frequency occurred from 09:00 PM to 10:00 PM Sun. During this time 24 SVE(s) occu rred. Multiple episodes of ST depression (defined as -1.0 mm or more) were noted in channel 1. The maximum depression of -1.8 mm occurred at 02:02:59 PM Mon. Multiple episodes of ST depression (d efined as -1.0 mm or more) were noted in channel 2. The maximum depression of -1.4 mm occurred at 0 9:36:49 AM Mon. No episodes of ST depression (defined as -1.0 mm or more) were noted in channel 3. TEST INTERPRETATION: Sinus rhythm An episode of supraventricular tachycardia observed at 08:09. Rate was 171 bpm . Around 5 sec of dur ation Reccurrent PVCs Multiple PACs No pause, NO ventricular tachycardia observed. There was no entry in the diary. Signed by : Arnav Whitney
[2016-10-14 09:07] VITALS: PULSE 77
[2016-10-14] MEDS ORDERED: NIFE30TA61 PO (10:10)
[2016-10-14] MEDS ORDERED: LISI30TA4 PO (10:10)
[2016-10-14] MEDS ORDERED: ASPI325T PO (10:10)
[2016-10-14] MEDS ORDERED: LIPI10TA PO (10:10)
--- NOTE | 2016-10-14 10:14 | HHI.FF ---
Face to Face Verification Diagnosis: (1) CVA (cerebral vascular accident) (2) Hypertension (3) COPD (chronic obstructive pulmonary disease) Home Health Nursing Order: Signs/symptoms of disease process Nursing assessment with vital signs Instructions: Pt is to resume her Lisinopril 30mg daily on , 10/16/16. If prior to Thursday her systolic BP is running over 170 then she can resume her Procardia XL 90mg po daily, otherwise she is to resume the Procardia on 10/20/16 with close monitoring of her blood pressure. The Clonidine 0.1mg q8H is previously prescribed to be used as needed for SBP over 150 after she has taken her other two BP medications. Please review medication changes with the pt I have seen patient Neha Mercado on 10/14/16. My clinical findings support the need for the requested home health care services because: Deconditioned w/ increased weakness High risk of falls I certify that my clinical findings support that this patient is homebound because: Hx COPD- exertion dyspnea/weakness Unable to use public transportation Madelaine Abreu Oct 14, 2016 10:14
--- NOTE | 2016-10-14 10:18 | HHI.DCPOC ---
Discharge Care Plan Diagnosis: (1) CVA (cerebral vascular accident) (2) Hypertension (3) Depression (4) History of lung cancer (5) COPD (chronic obstructive pulmonary disease) Goals to Promote Your Health - Patient is to resume her Lisinopril 30mg daily on , 10/16/16. - Home healthcare will be evaluating the pt daily and patient is to monitor her BP at home as well. - If prior to Thursday her systolic blood pressure (the top number) is running over 170 then she can resume her Procardia XL 90mg daily, otherwise she is to resume the Procardia on 10/20/16 with close monitoring of her blood pressure. The Clonidine 0.1mg every 8 hours as needed is previously prescribed to be used as needed for systolic blood pressure(top number) over 150 after she has taken her other two BP medications. - NEW MEDICATIONS INCLUDE: - Lipitor 10mg at bedtime (for cholesterol) - Aspirin 325mg once daily - Patient is to call her PCP, Dr. Nieto to schedule a followup appointment for within the next 7 days. - Physical therapy recommended the patient continue outpatient PT, I have written a prescription for this. Patient can contact [facility] in [place] to schedule an appointment, . Directions to Meet Your Goals Take your medications as prescribed Follow your dietary instruction Follow activity as directed Keep your appointments as scheduled Take your immunizations and boosters as scheduled If your symptoms worsen call your PCP, if no PCP go to Urgent Care Center or Emergency Room Smoking is Dangerous to Your Health. Avoid second hand smoke Call the 24-hour hour crisis hotline for domestic abuse at Madelaine Abreu Oct 14, 2016 10:18
--- NOTE | 2016-10-14 10:25 | HHI.PR ---
Subjective Remarks Pt without any complaints. Pt ambulating without difficulty She is anxious for discharge. Objective Vitals Vital Signs Date Time Temp Pulse Resp B/P Pulse Ox O2 Delivery O2 Flow Rate FiO2 10/14/16 09:07 77 10/14/16 08:14 95.7 75 16 123/98 96 10/14/16 04:00 97.9 82 20 148/82 96 10/14/16 00:15 98.8 75 19 138/88 96 10/13/16 22:34 83 10/13/16 20:50 98.1 79 18 154/93 95 10/13/16 16:15 96.7 88 20 128/79 95 10/13/16 12:12 65 10/13/16 12:09 96.2 78 20 146/85 95 10/13/16 10/13/16 10/14/16 14:59 22:59 06:59 Intake Total 900 ml 675 ml Balance 900 ml 675 ml Intake Oral 900 ml 675 ml # Voids 5 2 # Bowel Movements 1 0 Result Diagram: 10/13/16 0943 10/13/16 0943 Other Results Laboratory Tests Test 10/12/16 10/13/16 16:33 09:43 Ammonia 29 MCMOL/L Rapid Plasma Reagin NON-REACTIVE White Blood Count 7.5 TH/MM3 Red Blood Count 4.19 MIL/MM3 Hemoglobin 12.0 GM/DL Hematocrit 35.5 % Mean Corpuscular Volume 84.8 FL Mean Corpuscular Hemoglobin 28.6 PG Mean Corpuscular Hemoglobin 33.7 % Concent Red Cell Distribution Width 16.4 % Platelet Count 221 TH/MM3 Mean Platelet Volume 8.8 FL Neutrophils (%) (Auto) 61.7 % Lymphocytes (%) (Auto) 27.7 % Monocytes (%) (Auto) 7.2 % Eosinophils (%) (Auto) 2.8 % Basophils (%) (Auto) 0.6 % Neutrophils # (Auto) 4.6 TH/MM3 Lymphocytes # (Auto) 2.1 TH/MM3 Monocytes # (Auto) 0.5 TH/MM3 Eosinophils # (Auto) 0.2 TH/MM3 Basophils # (Auto) 0.0 TH/MM3 CBC Comment DIFF FINAL Differential Comment Sodium Level 140 MEQ/L Potassium Level 3.8 MEQ/L Chloride Level 108 MEQ/L Carbon Dioxide Level 26.0 MEQ/L Anion Gap 6 MEQ/L Blood Urea Nitrogen 16 MG/DL Creatinine 0.89 MG/DL Estimat Glomerular Filtration 60 ML/MIN Rate Random Glucose 117 MG/DL Calcium Level 8.7 MG/DL Triglycerides Level 104 MG/DL Cholesterol Level 215 MG/DL LDL Cholesterol 152 MG/DL HDL Cholesterol 42.5 MG/DL Cholesterol/HDL Ratio 5.05 RATIO Imaging Last Impressions Chest X-Ray 10/12/16 1012 Signed Impressions: Service Date/Time: Wednesday, October 12, 2016 10:28 - CONCLUSION: 1. Hyperaeration of both lung yusuf with chronic bilateral interstitial lung changes. These findings suggest COPD. 2. No acute pulmonary infiltrates. 3. Moderate scoliosis of the thoracic spine with curvature to the right. Scott Queen MD Head Magnetic Resonance Angiography 10/12/16 0000 Signed Impressions: Service Date/Time: Wednesday, October 12, 2016 10:45 - CONCLUSION: Unremarkable exam for patient's age. Scott Queen MD Head CT 10/12/16 0000 Signed Impressions: Service Date/Time: Wednesday, October 12, 2016 08:58 - CONCLUSION: 1. No acute intracranial hemorrhage. 2. 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 3. Bilateral cortical atrophy and chronic white matter changes. Scott Queen MD Carotid Artery Ultrasound 10/12/16 0000 Signed Impressions: Service Date/Time: Wednesday, October 12, 2016 11:15 - CONCLUSION: 1. There is mild to moderate atherosclerotic plaquing at both carotid bifurcations. 2. No focal high grade or hemodynamically significant stenosis. Scott Queen MD Brain MRI 10/12/16 0000 Signed Impressions: Service Date/Time: Wednesday, October 12, 2016 10:45 - CONCLUSION: 1. New 8mm focal acute infarct in the mid left parietal lobe. 2. Stable old small right basal ganglia infarct. 3. Stable bilateral cortical atrophy and chronic white matter changes. Scott Queen MD Objective Remarks General: NAD, AAOx3 Chest: CTA Cardiac: Regular Abd: +BS, soft ND/NT Ext: No edema Neuro: Moves all four extremities, no appreciable weakness A/P Problem List: (1) CVA (cerebral vascular accident) Status: Acute Plan: - Patient presented with complaint of RLE and RUE weakness, which gradually improved over time at home - CT brain (10/12/16) no acute findings - MRI brain (10/12/16) 8 mm left parietal acute infarct - Bilateral carotid ultrasound (10/12/16) no hemodynamically significant stenosis - MRA brain (10/12/16) unremarkable - Allow permissive hypertension - Telemetry with some tachycardia noted on 10/13, not clearly A. fib/flutter. Findings consistent with Holter results. - Holter monitor --> Sinus rhythm, an episode of SVT with rate of 171, around 5 sec in duration, recurrent PVCs, multiple PACs, no pauses, NO ventricular tachycardia noted. - 2D echocardiogram pending and can be followed up on by her PCP. - FLP with LDL 152, Lipitor 10mg HS started on 10/13. - Cont. ASA 325mg daily - Pt is stable for discharge on 10/14. She is ambulating without difficulty and no neurological deficits appreciable. - Patient is to resume her Lisinopril 30mg daily on , 10/16/16. - Home healthcare will be arranged and patient is to monitor her BP at home as well. - If prior to Thursday her SBP is running over 170 then she can resume her Procardia XL 90mg daily, otherwise she is to resume the Procardia on 10/20/16 with close monitoring of her blood pressure. The Clonidine 0.1mg q8H was previously prescribed to be used as needed for SBP over 150 after she has taken her other two BP medications. - Patient is to fu with PCP, Dr. Nieto, for followup appointment for within the next 7 days. - Physical therapy recommended the patient continue outpatient PT, I have written a prescription for this. Patient can contact [facility] in [place] to schedule an appointment, [phone]. (2) Hypertension Status: Chronic Plan: - see above (3) COPD (chronic obstructive pulmonary disease) Status: Chronic Plan: - Symbicort - duonebs prn (4) History of lung cancer Status: Resolved (5) Depression Status: Chronic Plan: - zoloft, xanax Assessment and Plan Patient examined. Assessment and plan formulated with Madelaine Abreu PA-C. I agree with the above. eager for d/c right side weakness resolved left parietal ischemic cva. holter just showed small run svt but no afib/flutter. asa/statin..hhc and slow addition of her home bp meds. f/u pcp. Problem Qualifiers (1) Hypertension: Qualified Code: I10 - Essential hypertension (2) COPD (chronic obstructive pulmonary disease): Qualified Code: J44.9 - Chronic obstructive pulmonary disease, unspecified COPD type (3) Depression: Qualified Code: F32.9 - Depression, unspecified depression type Madelaine Abreu Oct 14, 2016 10:25 Saman Burroughs MD Oct 14, 2016 10:29
[2016-10-14 11:05] LABS: AUTOMATED NEUTROPHIL # 4.9 TH/MM3 (1.8-7.7); BASOPHIL # 0.1 TH/MM3 (0-0.2); BASOPHIL % 0.6 % (0.0-2.0); EOSINOPHIL # 0.2 TH/MM3 (0-0.4); EOSINOPHIL % 2.7 % (0.0-4.0); HEMATOCRIT 36.9 % (35.0-46.0); HEMO FLAGS DIFF FINAL; LYMPH % 31.6 % (9.0-44.0); LYMPHOCYTE # 2.7 TH/MM3 (1.0-4.8); MEAN CELL VOLUME 84.3 FL (80.0-100.0); MEAN CORPUSCULAR HEMOGLOBIN 29.2 PG (27.0-34.0); MEAN CORPUSCULAR HGB CONC 34.7 % (32.0-36.0); MONO % 8.1 % (0.0-8.0); PLATELET COUNT 226 TH/MM3 (150-450); RED BLOOD COUNT 4.38 MIL/MM3 (4.00-5.30); RED CELL DISTRIBUTION WIDTH 15.8 % (11.6-17.2); WHITE BLOOD COUNT 8.6 TH/MM3 (4.0-11.0)
--- NOTE | 2016-10-14 11:30 | ECHRPT ---
Indication: cvt CONCLUSIONS Normal left ventricular size. Mild to moderate concentric left ventricular hypertrophy. The left ventricular systolic function is normal with an estimated ejection fraction in the range of 50-55%. No definite regional wall motion abnormalities are present. The left atrial size is mildly dilated. Trileaflet aortic valve. Minimal leaflet sclerosis. Trace aortic valve regurgitation. BP: 144 / 91 HR: 101 Rhythm: MEASUREMENTS (Male / Female) Normal Values Technical Quality:Good 2D ECHO LV Diastolic Diameter PLAX 3.5 cm 4.2 - 5.9 / 3.9 - 5.3 cm LV Systolic Diameter PLAX 3.0 cm IVS Diastolic Thickness 1.3 cm 0.6 - 1.0 / 0.6 - 0.9 cm LVPW Diastolic Thickness 1.2 cm 0.6 - 1.0 / 0.6 - 0.9 cm LV Relative Wall Thickness 0.7 RV Internal Dim ED PLAX 1.6 cm M-MODE Aortic Root Diameter MM 3.3 cm LA Systolic Diameter MM 3.2 cm LA Ao Ratio MM 1.0 AV Cusp Separation MM 1.8 cm DOPPLER Mitral E Point Velocity 48.9 cm/s Mitral A Point Velocity 117.0 cm/s Mitral E to A Ratio 0.4 FINDINGS LEFT VENTRICLE Normal left ventricular size. Mild to moderate concentric left ventricular hypertrophy. The left ventricular systolic function is low normal with an estimated ejection fraction in the rang e of 50- 55%. No definite regional wall motion abnormalities are present. RIGHT VENTRICLE The right ventricular size is normal. LEFT ATRIUM The left atrial size is mildly dilated. RIGHT ATRIUM The right atrial size is normal. ATRIAL SEPTUM Normal atrial septal thickness without atrial level shunting by limited color doppler interrogation. AORTA The aortic root and proximal ascending aorta are not well visualized. MITRAL VALVE Mildly thickened leaflets. No mitral valve stenosis or regurgitation. AORTIC VALVE Trileaflet aortic valve. Minimal leaflet sclerosis. Trace aortic valve regurgitation. TRICUSPID VALVE Structurally normal tricuspid valve. No tricuspid valve stenosis or regurgitation. PULMONARY VALVE The pulmonary valve is not well visualized. VESSELS The inferior vena cava is normal in size. PERICARDIUM No pericardial effusion. Darrick Cloud MD (Electronically Signed) Final Date:14 October 2016 11:30
[2016-10-14 11:37] LABS: ALT (GPT) 13 U/L (10-53); ANION GAP 9 MEQ/L (5-15); AST (GOT) 18 U/L (15-37); BICARBONATE 23.3 MEQ/L (21.0-32.0); BLOOD UREA NITROGEN 15 MG/DL (7-18); CHLORIDE 106 MEQ/L (98-107); GLOMERULAR FILTRATION RATE 52 ML/MIN (>89); SODIUM (NA) 138 MEQ/L (136-145)
[2016-10-14 11:39] LABS: ALKALINE PHOSPHATASE 70 U/L (45-117); TOTAL BILIRUBIN ADULT 0.6 MG/DL (0.2-1.0)
== END 2016-10-14 11:49 | disposition home health service (06) | DRG 65 ==
LOC: NEPE 08:19 → OBSVTOIN 10:24 → NEDA 10:24 → N05A 12:15
PROVIDERS: ADMIT Hospitalist; ATTEND Hospitalist
DX: I63.9 Cerebral infarction, unspecified (principal); G81.90 Hemiplegia, unspecified affecting unspecified side; J44.9 Chronic obstructive pulmonary disease, unspecified; I47.1 Supraventricular tachycardia; I10 Essential (primary) hypertension; K21.9 Gastro-esophageal reflux disease without esophagitis; I49.3 Ventricular premature depolarization; M19.90 Unspecified osteoarthritis, unspecified site; H40.9 Unspecified glaucoma; F41.9 Anxiety disorder, unspecified; F40.240 Claustrophobia; F32.9 Major depressive disorder, single episode, unspecified; Z85.118 Personal history of other malignant neoplasm of bronchus and lung; Z87.891 Personal history of nicotine dependence; Z88.1 Allergy status to other antibiotic agents; Z88.5 Allergy status to narcotic agent; Z88.0 Allergy status to penicillin; Z88.2 Allergy status to sulfonamides; Z90.2 Acquired absence of lung [part of]; Z91.013 Allergy to seafood
CPT/HCPCS: 70450; 70544; 70553; 71010; 80048; 80053; 80061; 82140; 82607; 82746; 83735; 84439; 84443; 85025; 85610; 85730; 86592; 93005; 93225; 93226; 93306; 93880; A9579; J2060

== ENCOUNTER 2016-12-18 18:03 | Observation (INO) | payer MEDICARE ==
[~2016-12-18] VITALS: Ht 154.9 cm; Wt 55.0 kg
[~2016-12-18 18:03] MED LIST changes: +ASPI325T PO; -CEPH-460 PO; +FORM20NE INH; +LIPI10TA PO; +LISI30TA4 PO; -MECL25CH CHEW; -MIRA33504 PO; +OMEP40CA2 PO; -PRED20 PO; -ZOFR4TAB3 SL; +calcium PO
[2016-12-18 18:05] VITALS: BP 142/80; PULSE 90; RESP 20; TEMP 97.5; O2SAT 93
--- NOTE | 2016-12-18 18:29 | PD ---
Physical Exam Time Seen by Provider: 18:27 Narrative 86yo F c/o waking up w/ dizziness. Slurred speech since 5pm. Needs help ambulating. Last seen NL last night before bed. Hx stroke 2.5 months ago. Also has hx of inner ear problems causing dizziness. Patient seen in triage. VS reviewed. Awaiting bed placement. Data Data Last Documented VS Vital Signs Date Time Temp Pulse Resp B/P (MAP) Pulse Ox O2 Delivery O2 Flow Rate FiO2 12/18/16 18:05 97.5 90 20 142/80 (100) 93 Room Air MDM Supervised Visit with SAÚL: Soledad Brunson Dec 18, 2016 18:29
--- NOTE | 2016-12-18 19:54 | PD ---
HPI Chief Complaint: Dizziness Time Seen by Provider: 19:38 Travel History International Travel<30 days: No Contact w/Intl Traveler<30days: No Traveled to known affect area: No History of Present Illness HPI 86yo F with PMH of CVA recently (MRI brain 10/12/16 showed 8mm left parietal acute infarct), HTN, COPD, lung CA resolved, depression presents to the ED with c/o slurred speech that started around 5pm and has resolved. As per daughter, she sounded like she was drunk and now is much better but speech is not exactly as crisp as normal. Pt also woke up at 10am with numbness in right hand going up the arm but now is only in the fingers. She has vertigo and episodes of dizziness and woke up with dizziness this morning that feels like her usual episodes. She is undergoing vestibular treatment. Denies any fever, cough, chest pain, sob, n/v, abdominal pain, focal weakness. Pt took her aspirin today. PFSH Past Medical History Arthritis: Yes Asthma: No Blood Disorders: No Anxiety: Yes Depression: Yes Heart Rhythm Problems: No Cancer: Yes (lung cancer) Cardiac Catheterization: No Cardiovascular Problems: Yes High Cholesterol: No Chemotherapy: No Congestive Heart Failure: No COPD: Yes Cerebrovascular Accident: Yes Diabetes: No Diminished Hearing: No Endocrine: No Glaucoma: No Genitourinary: No Hepatitis: No Hiatal Hernia: No Hypertension: Yes Immune Disorder: No Implanted Vascular Access Dvce: No Musculoskeletal: Yes (MILD ARTHRITIS IN HANDS) Neurologic: Yes (THIS VISIT) Reproductive: No Respiratory: Yes (COPD) Myocardial Infarction: No Radiation Therapy: No Sickle Cell Disease: No Thyroid Disease: No Menopausal: Yes Past Surgical History Abdominal Surgery: Yes (gallbladder. appendectomy) AICD: No Appendectomy: Yes Cardiac Surgery: Yes (aortic/THORACIC aneurysm removal with stent placement x2) Cholecystectomy: Yes Coronary Artery Bypass Graft: No Eye Surgery: Yes (BILATERAL CATARACTS) Gynecologic Surgery: Yes Hysterectomy: Yes Joint Replacement: No Pacemaker: No Thoracic Surgery: Yes (right lung lobectomy ) Other Surgery: Yes (lumpectomy right lung) Social History Alcohol Use: Yes (occasional ) Tobacco Use: No Substance Use: No Allergies-Medications (Allergen,Severity, Reaction): Coded Allergies: Sulfa (Sulfonamide Antibiotics) (Unverified Allergy, Severe, Hives, ) codeine (Unverified Allergy, Severe, Hives, 12/02/16) doxycycline (Unverified Allergy, Severe, SEVERE RASH, 12/02/16) morphine (Unverified Allergy, Severe, 12/02/16) I DONT KNOW WHAT HAPPENS IT WAS SO LONG AGO penicillin G (Unverified Allergy, Severe, Hives, 12/02/16) ciprofloxacin (Unverified Allergy, Unknown, 12/02/16) clarithromycin (Unverified Allergy, Unknown, 12/02/16) clindamycin (Unverified Allergy, Unknown, 12/02/16) grass pollen (Unverified Allergy, Unknown, 12/02/16) lovastatin (Unverified Allergy, Unknown, 12/02/16) metoclopramide (Unverified Allergy, Unknown, 12/02/16) shellfish derived (Unverified Allergy, Unknown, 12/02/16) Reported Meds & Prescriptions Reported Meds & Active Scripts Active Aspirin 325 Mg Tab 325 Mg PO DAILY Lipitor (Atorvastatin Calcium) 10 Mg Tab 10 Mg PO HS Lisinopril 30 Mg Tab 30 Mg PO DAILY RESUME THIS ON 10/16/16. Nifedipine ER 24 HR (Nifedipine) 30 Mg Tab 90 Mg PO DAILY RESUME THIS ON 10/20/16. Zofran (Ondansetron HCl) 4 Mg Tab 4 Mg PO Q6HR PRN Potassium Chloride ER (Potassium Chloride) 20 Meq Tab 20 Meq PO DAILY Reported Omeprazole 40 Mg Cap 40 Mg PO DAILY Perforomist Neb (Formoterol Fumarate) 20 Mcg/2 Ml Neb 1 Nebule INH BID [calcium ] 1,000 Mg PO DAILY Clonidine (Clonidine HCl) 0.1 Mg Tab 0.1 Mg PO Q8HR PRN Zoloft (Sertraline HCl) 25 Mg Tab 75 Mg PO DAILY Alprazolam 0.25 Mg Tab 0.25 Mg PO HS PRN Latanoprost Opth Drops (Latanoprost) 0.005% Drops 1 Drop EACH EYE HS Refrigerate until opened. Brimonidine Opth Drops (Brimonidine Tartrate) 0.2% Soln 1 Drop LEFT EYE Q12HR Singulair (Montelukast Sodium) 10 Mg Tab 10 Mg PO DAILY Review of Systems Except as stated in HPI: all other systems reviewed are Neg Physical Exam Narrative GENERAL: 86yo F not in distress. SKIN: Focused skin assessment warm/dry. HEAD: Atraumatic. Normocephalic. EYES: Pupils equal and round. No scleral icterus. No injection or drainage. ENT: No nasal bleeding or discharge. Mucous membranes pink and moist. NECK: Trachea midline. No JVD. CARDIOVASCULAR: Regular rate and rhythm. No murmur appreciated. RESPIRATORY: No accessory muscle use. Clear to auscultation. Breath sounds equal bilaterally. GASTROINTESTINAL: Abdomen soft, non-tender, nondistended. MUSCULOSKELETAL: No obvious deformities. No clubbing. No cyanosis. No edema. NEUROLOGICAL: NIH stroke 1 with some decreased sensation in right hand. PSYCHIATRIC: Appropriate mood and affect; insight and judgment normal. Data Data Last Documented VS Vital Signs Date Time Temp Pulse Resp B/P (MAP) Pulse Ox O2 Delivery O2 Flow Rate FiO2 12/18/16 18:05 97.5 90 20 142/80 (100) 93 Room Air Orders Orders Ct Brain W/O Iv Contrast(Rout) (12/18/16 ) Complete Blood Count With Diff (12/18/16 19:47) Basic Metabolic Panel (Bmp) (12/18/16 19:47) Prothrombin Time / Inr (Pt) (12/18/16 19:47) Act Partial Throm Time (Ptt) (12/18/16 19:47) Urinalysis - C+S If Indicated (12/18/16 20:07) Clopidogrel (Plavix) (12/18/16 21:30) Labs Laboratory Tests Test 12/18/16 20:05 12/18/16 20:30 White Blood Count 7.9 TH/MM3 Red Blood Count 4.59 MIL/MM3 Hemoglobin 13.1 GM/DL Hematocrit 39.7 % Mean Corpuscular Volume 86.6 FL Mean Corpuscular Hemoglobin 28.5 PG Mean Corpuscular Hemoglobin Concent 32.9 % Red Cell Distribution Width 15.8 % Platelet Count 243 TH/MM3 Mean Platelet Volume 8.6 FL Neutrophils (%) (Auto) 54.7 % Lymphocytes (%) (Auto) 33.4 % Monocytes (%) (Auto) 7.8 % Eosinophils (%) (Auto) 3.4 % Basophils (%) (Auto) 0.7 % Neutrophils # (Auto) 4.3 TH/MM3 Lymphocytes # (Auto) 2.6 TH/MM3 Monocytes # (Auto) 0.6 TH/MM3 Eosinophils # (Auto) 0.3 TH/MM3 Basophils # (Auto) 0.1 TH/MM3 CBC Comment DIFF FINAL Differential Comment Prothrombin Time 10.6 SEC Prothromb Time International Ratio 1.0 RATIO Activated Partial Thromboplast Time 27.4 SEC Blood Urea Nitrogen 16 MG/DL Creatinine 0.94 MG/DL Random Glucose 84 MG/DL Calcium Level 9.8 MG/DL Sodium Level 139 MEQ/L Potassium Level 3.7 MEQ/L Chloride Level 104 MEQ/L Carbon Dioxide Level 26.1 MEQ/L Anion Gap 9 MEQ/L Estimat Glomerular Filtration Rate 57 ML/MIN MDM Medical Decision Making Medical Screen Exam Complete: Yes Emergency Medical Condition: Yes Differential Diagnosis CVA vs. TIA vs. electrolyte abnormality Narrative Course 86yo F with slurred speech at 5pm today and has improved significantly. However , daughter insisted that her speech is not back to baseline. Labs reviewed, no leukocytosis. BMP unremarkable. UA was sent because pt states she has a lot of UTIs and she was feeling dizzy. CT brain showed no acute intracranial abnormality. Suspected old lacunar infarcts in basal ganglia. Will admit for TIA work up. Pt already took aspirin today. Discussed with Dr. Beltran and he recommended adding plavix and admitting to Dr. Fountain. Diagnosis Primary Impression: TIA (transient ischemic attack) Qualified Codes: G45.9 - Transient cerebral ischemic attack, unspecified Admitting Information Admitting Physician Requests: Dasha Cox DO Dec 18, 2016 19:54
[2016-12-18 20:47] LABS: AUTOMATED NEUTROPHIL # 4.3 TH/MM3 (1.8-7.7); BASOPHIL # 0.1 TH/MM3 (0-0.2); BASOPHIL % 0.7 % (0.0-2.0); EOSINOPHIL # 0.3 TH/MM3 (0-0.4); EOSINOPHIL % 3.4 % (0.0-4.0); HEMATOCRIT 39.7 % (35.0-46.0); HEMO FLAGS DIFF FINAL; LYMPH % 33.4 % (9.0-44.0); LYMPHOCYTE # 2.6 TH/MM3 (1.0-4.8); MEAN CELL VOLUME 86.6 FL (80.0-100.0); MEAN CORPUSCULAR HEMOGLOBIN 28.5 PG (27.0-34.0); MEAN CORPUSCULAR HGB CONC 32.9 % (32.0-36.0); MONO % 7.8 % (0.0-8.0); NEUT % 54.7 % (16.0-70.0); PLATELET COUNT 243 TH/MM3 (150-450); RED BLOOD COUNT 4.59 MIL/MM3 (4.00-5.30); RED CELL DISTRIBUTION WIDTH 15.8 % (11.6-17.2); WHITE BLOOD COUNT 7.9 TH/MM3 (4.0-11.0)
[2016-12-18 21:00] LABS: APTT (PATIENT) 27.4 SEC (24.3-30.1); PROTHROMBIN TIME - PATIENT 10.6 SEC (9.8-11.6)
--- NOTE | 2016-12-18 21:09 | RADRPT ---
EXAM DATE/TIME: 12/18/2016 20:04 [facility] COMPARISON: CT BRAIN W/O CONTRAST, October 12, 2016, 8:58. INDICATIONS : Dizziness and slurred speech. RADIATION DOSE: 30.17 CTDIvol (mGy) MEDICAL HISTORY : Cerebrovascular disease. Aneurysm, abdominal. Hypertension.Lung carconoma. SURGICAL HISTORY : None. ENCOUNTER: Initial ACUITY: 1 day PAIN SCALE: 0/10 LOCATION: cranial TECHNIQUE: Multiple contiguous axial images were obtained of the head. Using automated exposure control and adj ustment of the mA and/or kV according to patient size, radiation dose was kept as low as reasonably a chievable to obtain optimal diagnostic quality images. DICOM format image data is available electro nically for review and comparison. FINDINGS: CEREBRUM: The ventricles and cortical sulci are widened. There continue to be small areas of low-density in the basal ganglia regions bilaterally. No evidence of midline shift, mass lesion, hemorrhage or acute i nfarction. No extra-axial fluid collections are seen. POSTERIOR FOSSA: The cerebellum and brainstem are intact. The 4th ventricle is midline. The cerebellopontine angle i s unremarkable. EXTRACRANIAL: The visualized portion of the orbits is intact. SKULL: The calvaria is intact. No evidence of skull fracture. CONCLUSION: 1. No acute intracranial abnormality seen. 2. Atrophy. 3. Suspected old lacunar infarcts in the basal ganglia regions. Markel Devi MD on December 18, 2016 at 21:07 Board Certified Radiologist. This report was verified electronically.
[2016-12-18 21:10] LABS: BICARBONATE 26.1 MEQ/L (21.0-32.0); POTASSIUM 3.7 MEQ/L (3.5-5.1)
[2016-12-18 21:28] LABS: BACTERIA, URINE RARE /hpf; BLOOD, URINE NEG (NEG); COMMENT (UR) CULT NOT INDICATED; CULTURE IF INDICATED CULT NOT INDICATED; GLUCOSE,URINE NEG (NEG); KETONE, URINE NEG (NEG); NITRITE,URINE NEG (NEG); PH, URINE 7.5 (5.0-8.5); SQUAMOUS EPITHELIAL CELL URINE <1 /hpf (0-5); URINE COLOR LIGHT-YELLOW (YELLW/STRAW)
[2016-12-18] MEDS ORDERED: CLOPIDOGREL 75 MG TAB PO ONE (21:30)
--- NOTE | 2016-12-18 22:09 | HHI.HP ---
HPI Service [facility] Hospitalists Primary Care Physician Gricelda Nieto MD Admission Diagnosis TIA Chief Complaint: dizziness, speech change, numbness Travel History International Travel<30 Days: No Contact w/Intl Traveler <30 Da: No Traveled to Known Affected Are: No History of Present Illness 86yo F with PMH of CVA recently (MRI brain 10/12/16 showed 8mm left parietal acute infarct), HTN, COPD, lung CA resolved, depression presents to the ED with c/o slurred speech that started around 5pm and has resolved. As per daughter, she sounded like she was drunk and now is much better but speech is not exactly as crisp as normal. Pt also woke up at around 10 am with numbness in right hand going up the arm, then only in the fingers and on my exam completely resolved. She has vertigo and episodes of dizziness and woke up with dizziness this morning that feels like her usual episodes. She is undergoing vestibular treatment. Her last episode of severe vertigo was appx 2 mos ago. Denies any fever, cough, chest pain, sob, n/v, abdominal pain, focal weakness. Pt took her aspirin today and is on no other anticoagulant or antiplatelet therapy. Denies CP or SOB. She does take Meclizine, but it doesn't do much for her dizziness. Daughter reports that pt hasn't been able to ambulate at all today due to dizziness. Review of Systems Constitutional: DENIES: Diaphoretic episodes, Fatigue, Fever, Weight gain, Weight loss, Chills, Dizziness, Change in appetite, Night Sweats Eyes: DENIES: Blurred vision, Diplopia, Eye inflammation, Eye pain, Vision loss , Photosensitivity, Double Vision Ears, nose, mouth, throat: COMPLAINS OF: Vertigo, DENIES: Tinnitus, Hearing loss, Nasal discharge, Oral lesions, Throat pain, Hoarseness, Ear Pain, Running Nose, Epistaxis, Sinus Pain, Toothache, Odynophagia Respiratory: DENIES: Apneas, Cough, Snoring, Wheezing, Hemoptysis, Sputum production, Shortness of breath Cardiovascular: DENIES: Chest pain, Palpitations, Syncope, Dyspnea on Exertion , PND, Lower Extremity Edema, Orthopnea, Claudication Gastrointestinal: DENIES: Abdominal pain, Black stools, Bloody stools, BRB per rectum, Constipation, Diarrhea, GERD, Nausea, Reflux, Vomiting, Difficulty Swallowing, Anorexia, See HPI Musculoskeletal: COMPLAINS OF: Joint pain Hematologic/lymphatic: DENIES: Bruising, Lymphadenopathy Immunologic/allergic: DENIES: Eczema, Urticaria Neurologic: COMPLAINS OF: Abnormal gait, Paresthesias, Speech Problems, Poor Balance, DENIES: Headache, Localized weakness, Seizures, Tremor Psychiatric: COMPLAINS OF: Anxiety Past Family Social History Past Medical History 1) abdominal aortic aneurysm 2) thoracic aorta aneurysm 3) hypertension 4) COPD 5) glaucoma 6) GERD 7) depression 8) adenocarcinoma of the lung, status post right lower lobe resection 9) 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 Past Surgical History 1) AAA, status post stent graft ascending aorta 2) laparoscopic cholecystectomy 3) hysterectomy 4) appendectomy 5) colonoscopy 6) EGD 7) diverticulectomy of the esophagus by cervical approach 8) lung lobectomy Reported Medications Aspirin 325 Mg Tab 325 Mg PO DAILY Lipitor (Atorvastatin Calcium) 10 Mg Tab 10 Mg PO HS Lisinopril 30 Mg Tab 30 Mg PO DAILY Nifedipine ER 24 HR (Nifedipine) 30 Mg Tab 90 Mg PO DAILY Zofran (Ondansetron HCl) 4 Mg Tab 4 Mg PO Q6HR PRN Potassium Chloride ER (Potassium Chloride) 20 Meq Tab 20 Meq PO DAILY Omeprazole 40 Mg Cap 40 Mg PO DAILY Perforomist Neb (Formoterol Fumarate) 20 Mcg/2 Ml Neb 1 Nebule INH BID [calcium ] 1,000 Mg PO DAILY Clonidine (Clonidine HCl) 0.1 Mg Tab 0.1 Mg PO Q8HR PRN Zoloft (Sertraline HCl) 25 Mg Tab 75 Mg PO DAILY Alprazolam 0.25 Mg Tab 0.25 Mg PO HS PRN Latanoprost Opth Drops (Latanoprost) 0.005% Drops 1 Drop EACH EYE HS Refrigerate until opened. Brimonidine Opth Drops (Brimonidine Tartrate) 0.2% Soln 1 Drop LEFT EYE Q12HR Singulair (Montelukast Sodium) 10 Mg Tab 10 Mg PO DAILY Allergies: Coded Allergies: Sulfa (Sulfonamide Antibiotics) (Unverified Allergy, Severe, Hives, ) codeine (Unverified Allergy, Severe, Hives, 12/02/16) doxycycline (Unverified Allergy, Severe, SEVERE RASH, 12/02/16) morphine (Unverified Allergy, Severe, 12/02/16) I DONT KNOW WHAT HAPPENS IT WAS SO LONG AGO penicillin G (Unverified Allergy, Severe, Hives, 12/02/16) ciprofloxacin (Unverified Allergy, Unknown, 12/02/16) clarithromycin (Unverified Allergy, Unknown, 12/02/16) clindamycin (Unverified Allergy, Unknown, 12/02/16) grass pollen (Unverified Allergy, Unknown, 12/02/16) lovastatin (Unverified Allergy, Unknown, 12/02/16) metoclopramide (Unverified Allergy, Unknown, 12/02/16) shellfish derived (Unverified Allergy, Unknown, 12/02/16) Family History nc Social History No tobacco in many years Rare EtOH use Lives with daughter. Physical Exam Vital Signs Vital Signs Date Time Temp Pulse Resp B/P (MAP) Pulse Ox O2 Delivery O2 Flow Rate FiO2 12/18/16 18:05 97.5 90 20 142/80 (100) 93 Room Air Physical Exam GENERAL: This is a well-nourished, well-developed patient, in no apparent distress. Alert, oriented. Follows simple commands. SKIN: xerotic. HEAD: Atraumatic. Normocephalic. No temporal or scalp tenderness. EYES: Pupils equal round and reactive. Extraocular motions intact. No scleral icterus. No injection or drainage. No nystagmus. ENT: Nose without bleeding, purulent drainage or septal hematoma. Airway patent. NECK: Trachea midline. No JVD or lymphadenopathy. Supple, nontender, no meningeal signs. CARDIOVASCULAR: Regular rate and rhythm with occasional PVC and without murmurs , gallops, or rubs. RESPIRATORY: Clear to auscultation. Breath sounds equal bilaterally. No wheezes , rales, or rhonchi. GASTROINTESTINAL: Abdomen soft, non-tender, nondistended. No hepato-splenomegaly , or palpable masses. No guarding. MUSCULOSKELETAL: Extremities without clubbing, cyanosis, or edema. No joint tenderness, effusion, or edema noted. No calf tenderness. MAEW. NEUROLOGICAL: Awake and alert. Cranial nerves II through XII intact. Five out of 5 muscle strength in all muscle groups. Normal speech (a bit slower than normal per daughter's report). Funmi maneuver reproduced her vertiginous symptoms. Did not attempt to walk pt. Laboratory Laboratory Tests Test 12/18/16 20:05 12/18/16 20:30 White Blood Count 7.9 Red Blood Count 4.59 Hemoglobin 13.1 Hematocrit 39.7 Mean Corpuscular Volume 86.6 Mean Corpuscular Hemoglobin 28.5 Mean Corpuscular Hemoglobin Concent 32.9 Red Cell Distribution Width 15.8 Platelet Count 243 Mean Platelet Volume 8.6 Neutrophils (%) (Auto) 54.7 Lymphocytes (%) (Auto) 33.4 Monocytes (%) (Auto) 7.8 Eosinophils (%) (Auto) 3.4 Basophils (%) (Auto) 0.7 Neutrophils # (Auto) 4.3 Lymphocytes # (Auto) 2.6 Monocytes # (Auto) 0.6 Eosinophils # (Auto) 0.3 Basophils # (Auto) 0.1 CBC Comment DIFF FINAL Differential Comment Prothrombin Time 10.6 Prothromb Time International Ratio 1.0 Activated Partial Thromboplast Time 27.4 Blood Urea Nitrogen 16 Creatinine 0.94 Random Glucose 84 Calcium Level 9.8 Sodium Level 139 Potassium Level 3.7 Chloride Level 104 Carbon Dioxide Level 26.1 Anion Gap 9 Estimat Glomerular Filtration Rate 57 Urine Color LIGHT-YELLOW Urine Turbidity CLEAR Urine pH 7.5 Urine Specific [place] 1.011 Urine Protein NEG Urine Glucose (UA) NEG Urine Ketones NEG Urine Occult Blood NEG Urine Nitrite NEG Urine Bilirubin NEG Urine Urobilinogen LESS THAN 2.0 Urine Leukocyte Esterase NEG Urine RBC 1 Urine WBC 1 Urine Squamous Epithelial Cells <1 Urine Bacteria RARE Microscopic Urinalysis Comment CULT NOT INDICATED Result Diagram: 12/18/16200412/18/16 2005 Imaging Last [address] 12/18/16 0000 Signed Impressions: Service Date/Time: November 20:04 - CONCLUSION: 1. No acute intracranial abnormality seen. 2. Atrophy. 3. Suspected old lacunar infarcts in the basal ganglia regions. Markel Devi MD Caprini VTE Risk Assessment Caprini VTE Risk Assessment: Mod/High Risk (score >= 2) Caprini Risk Assessment Model Point Value = 1 Point Value = 2 Point Value = 3 Point Value = 5 Age 41-60 Minor surgery BMI > 25 kg/m2 Swollen legs Varicose veins or History of unexplained or recurrent spontaneous Oral contraceptives or hormone replacement Sepsis (< 1 month) Serious lung disease, including pneumonia (< 1 month) Abnormal pulmonary function Acute myocardial infarction Congestive heart failure (< 1 month) History of inflammatory bowel disease Medical patient at bed rest Age 61-74 Arthroscopic surgery Major open surgery (> 45 min) Laparoscopic surgery (> 45 min) Malignancy Confined to bed (> 72 hours) Immobilizing plaster cast Central venous access Age >= 75 History of VTE Family history of VTE Factor V Leiden Prothrombin [id number] Lupus anticoagulant Anticardiolipin antibodies Elevated serum homocysteine Heparin-induced thrombocytopenia Other congenital or acquired thrombophilia Stroke (< 1 month) Elective arthroplasty Hip, pelvis, or leg fracture Acute spinal cord injury (< 1 month) Prophylaxis Regimen Total Risk Factor Score Risk Level Prophylaxis Regimen 0-1 Low Early ambulation 2 Moderate Order ONE of the following: *Sequential Compression Device (SCD) *Heparin 5000 units SQ BID 3-4 Higher Order ONE of the following medications: *Heparin 5000 units SQ TID *Enoxaparin/Lovenox 40 mg SQ daily (WT < 150 kg, CrCl > 30 mL/min) *Enoxaparin/Lovenox 30 mg SQ daily (WT < 150 kg, CrCl > 10-29 mL/min) *Enoxaparin/Lovenox 30 mg SQ BID (WT < 150 kg, CrCl > 30 mL/min) AND/OR *Sequential Compression Device (SCD) 5 or more Highest Order ONE of the following medications: *Heparin 5000 units SQ TID (Preferred with Epidurals) *Enoxaparin/Lovenox 40 mg SQ daily (WT < 150 kg, CrCl > 30 mL/min) *Enoxaparin/Lovenox 30 mg SQ daily (WT < 150 kg, CrCl > 10-29 mL/min) *Enoxaparin/Lovenox 30 mg SQ BID (WT < 150 kg, CrCl > 30 mL/min) AND *Sequential Compression Device (SCD) Assessment and Plan Problem List: (1) TIA (transient ischemic attack) ICD Codes: G45.9 - Transient cerebral ischemic attack, unspecified Status: Acute Plan: Add Plavix. Continue ASA Check MRI, MRA Will not repeat u/s, echo tele PT Hopefully d/c tomorrow. ? rehab (2) Hypertension ICD Codes: I10 - Essential (primary) hypertension Status: Chronic Plan: permissive HTN for first 2-3 days. (3) COPD (chronic obstructive pulmonary disease) ICD Codes: J44.9 - COPD (chronic obstructive pulmonary disease) Status: Chronic Plan: duoneb (4) Vertigo ICD Codes: R42 - Dizziness and giddiness Status: Acute Plan: vestib rehab Code Status full Discussed Condition With Pt, her daughter, ER provider Problem Qualifiers (1) TIA (transient ischemic attack): Qualified Codes: G45.9 - Transient cerebral ischemic attack, unspecified (2) Hypertension: Qualified Codes: I10 - Essential (primary) hypertension Иван Beltran MD PhD Dec 18, 2016 22:09
[2016-12-18] MEDS ORDERED: SODIUM CHLORIDE 0.9% FLUSH 5 ML FLUSH IV FLUSH PRN (22:15)
[2016-12-18] MEDS ORDERED: ALPRAZolam 0.25 MG TAB PO PRN (22:30)
[2016-12-18 22:37] VITALS: BP 162/72; PULSE 87; RESP 18; O2SAT 99
[2016-12-18] MEDS ORDERED: PILL SPLITTER OTHER PRN (22:45)
[2016-12-19] VITALS (12 sets, daily range): BP systolic 152–186; BP diastolic 84–106; PULSE 55–84; RESP 16–22; TEMP 97.3–98.1; O2SAT 95–98
[2016-12-19 09:29] LABS: HDL CHOLESTEROL 60.9 MG/DL (40.0-60.0)
[2016-12-19] MEDS: SODIUM CHLORIDE 0.9% FLUSH 5 ML FLUSH IV FLUSH SCH ×2 (09:47→21:00)
[2016-12-19] MEDS: MONTELUKAST SODIUM 10 MG TAB PO SCH (09:47)
[2016-12-19] MEDS: SERTRALINE HCL 50 MG TAB PO SCH (09:47)
[2016-12-19] MEDS: PANTOPRAZOLE SOD 40 MG DELAYED RELEASE TAB PO SCH (09:48)
[2016-12-19] MEDS: ASPIRIN 81 MG CHEW TAB PO SCH (09:48)
[2016-12-19] MEDS: CLOPIDOGREL 75 MG TAB PO SCH (09:48)
[2016-12-19] MEDS: BRIMONIDINE TARTRATE 0.2% OPHT SOLN 5 ML BTL LEFT EYE SCH ×2 (11:17→20:35)
[2016-12-19] MEDS ORDERED: LORazepam 2 MG/ML VIAL IV PUSH SCH (11:45)
--- NOTE | 2016-12-19 16:13 | RADRPT ---
EXAM DATE/TIME: 12/19/2016 15:01 [facility] COMPARISON: MRI BRAIN W/O CONTRAST, August 03, 2016, 14:26. INDICATIONS : CVA. MEDICAL HISTORY : Carcinoma, lung. Hypertension. SURGICAL HISTORY : Hysterectomy. Appendectomy. Lobectomy. Cardiac stent placement. ENCOUNTER: Subsequent ACUITY: 1 day PAIN SCORE: 3/10 LOCATION: cranial TECHNIQUE: Multiplanar, multisequence MRI of the brain was performed without contrast. FINDINGS: MRI of the brain is performed in sagittal, axial and coronal planes. The craniocervical junction and midline structures are unremarkable. There is a focal air restrictive diffusion involving the mesence phalon at the level of the superior cerebellar peduncle acteristic of acute infarct. The maximal diam eter of this finding is 10 mm x 5 mm. There is periventricular hyperintensity on the T2 weighted imag es consistent with small vessel vascular disease significantly more than expected in a patient of thi s age.There is no evidence of acute cortical infarction, acute hemorrhage, mass effect or midline gildardo ft is seen. Posterior fossa structures are unremarkable. CONCLUSION: 1. Acute ischemic infarct involving the lucian as above Shin Vallecillo MD on December 19, 2016 at 16:09 Board Certified Radiologist. This report was verified electronically.
--- NOTE | 2016-12-19 16:15 | RADRPT ---
EXAM DATE/TIME: 12/19/2016 15:01 [facility] COMPARISON: MRA BRAIN W/O CONTRAST, October 12, 2016, 10:45. INDICATIONS : CVA. MEDICAL HISTORY : Carcinoma, lung. Hypertension. SURGICAL HISTORY : Hysterectomy. Appendectomy. Lobectomy. Cardiac stent placement. ENCOUNTER: Subsequent ACUITY: 1 day PAIN SCORE: 3/10 LOCATION: cranial Please note a normal MRA of the brain does not entirely exclude the possibility of a small aneurysm, nor the possibility of distal intracranial vessel disease. TECHNIQUE: 3D time of flight MRA was performed. Source images, multiplanar STS MIP, and 3D volume MIP reconstru ctions were reviewed. FINDINGS: There is excellent visualization of the major intracranial arteries out to the second-order branch ve ssels. There is no evidence for aneurysm, vessel truncation or stenosis, and no evidence for vascula r malformation. There is a hypoplastic A1 segment on the right CONCLUSION: 1. Unremarkable MR angiography of the brain. Shin Vallecillo MD on December 19, 2016 at 16:11 Board Certified Radiologist. This report was verified electronically.
--- NOTE | 2016-12-19 16:34 | HHI.PR ---
Subjective Remarks Pt is lethargic from the Ativan that she received prior to the MRI due to her claustrophobia Pts daughter is at bedside and we discussed the results of the MRI with her. Objective Vitals Vital Signs Date Time Temp Pulse Resp B/P (MAP) Pulse Ox O2 Delivery O2 Flow Rate FiO2 12/19/16 12:23 97.7 71 16 155/95 (115) 97 12/19/16 08:44 97.3 55 22 165/95 (118) 95 12/19/16 05:07 97.6 70 20 152/92 (112) 96 12/19/16 04:01 84 12/19/16 00:02 97.6 72 20 171/84 (113) 97 12/19/16 00:00 72 12/18/16 23:20 12/18/16 22:37 87 18 162/72 (102) 99 Room Air 12/18/16 18:05 97.5 90 20 142/80 (100) 93 Room Air Result Diagram: 12/18/16200412/18/162004 Other Results Laboratory Tests Test 12/18/16 20:05 12/18/16 20:30 12/19/16 07:41 White Blood Count 7.9 TH/MM3 Red Blood Count 4.59 MIL/MM3 Hemoglobin 13.1 GM/DL Hematocrit 39.7 % Mean Corpuscular Volume 86.6 FL Mean Corpuscular Hemoglobin 28.5 PG Mean Corpuscular Hemoglobin Concent 32.9 % Red Cell Distribution Width 15.8 % Platelet Count 243 TH/MM3 Mean Platelet Volume 8.6 FL Neutrophils (%) (Auto) 54.7 % Lymphocytes (%) (Auto) 33.4 % Monocytes (%) (Auto) 7.8 % Eosinophils (%) (Auto) 3.4 % Basophils (%) (Auto) 0.7 % Neutrophils # (Auto) 4.3 TH/MM3 Lymphocytes # (Auto) 2.6 TH/MM3 Monocytes # (Auto) 0.6 TH/MM3 Eosinophils # (Auto) 0.3 TH/MM3 Basophils # (Auto) 0.1 TH/MM3 CBC Comment DIFF FINAL Differential Comment Prothrombin Time 10.6 SEC Prothromb Time International Ratio 1.0 RATIO Activated Partial Thromboplast Time 27.4 SEC Blood Urea Nitrogen 16 MG/DL Creatinine 0.94 MG/DL Random Glucose 84 MG/DL Calcium Level 9.8 MG/DL Sodium Level 139 MEQ/L Potassium Level 3.7 MEQ/L Chloride Level 104 MEQ/L Carbon Dioxide Level 26.1 MEQ/L Anion Gap 9 MEQ/L Estimat Glomerular Filtration Rate 57 ML/MIN Urine Color LIGHT-YELLOW Urine Turbidity CLEAR Urine pH 7.5 Urine Specific [place] 1.011 Urine Protein NEG mg/dL Urine Glucose (UA) NEG mg/dL Urine Ketones NEG mg/dL Urine Occult Blood NEG Urine Nitrite NEG Urine Bilirubin NEG Urine Urobilinogen LESS THAN 2.0 MG/DL Urine Leukocyte Esterase NEG Urine RBC 1 /hpf Urine WBC 1 /hpf Urine Squamous Epithelial Cells <1 /hpf Urine Bacteria RARE /hpf Microscopic Urinalysis Comment CULT NOT INDICATED Triglycerides Level 84 MG/DL Cholesterol Level 149 MG/DL LDL Cholesterol 71 MG/DL HDL Cholesterol 60.9 MG/DL Cholesterol/HDL Ratio 2.44 RATIO Imaging Last Impressions Head Magnetic Resonance Angiography 12/19/16 0000 Signed Impressions: Service Date/Time: Monday, December 19, 2016 15:01 - CONCLUSION: 1. Unremarkable MR angiography of the brain. Shin Vallecillo MD Brain MRI 12/19/16 0000 Signed Impressions: Service Date/Time: Monday, December 19, 2016 15:01 - CONCLUSION: 1. Acute ischemic infarct involving the lucian as above Shin Vallecillo MD Head CT 12/18/16 0000 Signed Impressions: Service Date/Time: November 20:04 - CONCLUSION: 1. No acute intracranial abnormality seen. 2. Atrophy. 3. Suspected old lacunar infarcts in the basal ganglia regions. Markel Devi MD Objective Remarks General: NAD, lethargic Chest: CTA Cardiac: Regular Abd: +BS, soft ND/NT Ext: No edema A/P Problem List: (1) CVA (cerebral vascular accident) ICD Codes: I63.9 - Cerebral infarction, unspecified Status: Acute Plan: - Pt is an 86yo female with hx of recent CVA (MRI brain 10/12/16 showed 8mm left parietal acute infarct), HTN, COPD, hx of lung CA, and depression who presented to the ED with c/o slurred speech that started around 5pm on 12/18 but resolved prior to admission - Head CT (12/18) --> No acute intracranial abnormality seen. Atrophy. Suspected old lacunar infarcts in the basal ganglia regions. - MRI Brain (12/19) --> Acute ischemic infarct involving the lucian - Pt had a previous stroke in in September 2016 and was discharged on ASA - Previous workup in September included - Holter monitor (10/12) --> Sinus rhythm, an episode of SVT with rate of 171 , around 5 sec in duration, recurrent PVCs, multiple PACs, no pauses, NO ventricular tachycardia noted. - 2D echo (10/14) --> [id number] LVH, estimated EF 50-55% - FLP (12/19) with LDL 71, Cont. Lipitor 10mg HS - Cont. ASA 325mg daily - Plavix 75mg po daily added - Permissive HTN (Pt is on Lisinopril 30 Mg PO DAILY, Nifedipine ER 90 Mg PO DAILY, and Clonidine PRN at home) - PT/ST - Diet recommendations per ST - Start IVF and monitor clinical progress overnight - If pt is stable, anticipate discharge to SNF tomorrow. (2) Hypertension ICD Codes: I10 - Essential (primary) hypertension Status: Chronic Plan: - See above. - Permissive HTN (3) COPD (chronic obstructive pulmonary disease) ICD Codes: J44.9 - COPD (chronic obstructive pulmonary disease) Status: Chronic Plan: - Cont. duoneb (4) Vertigo ICD Codes: R42 - Dizziness and giddiness Status: Acute Plan: - Vestib rehab Assessment and Plan Patient examined. Assessment and plan formulated with Madelaine Abreu PA-C. I agree with the above. If stable and BP controlled, anticipate d/c to SNF 12/20 Problem Qualifiers (1) Hypertension: Qualified Codes: I10 - Essential (primary) hypertension Madelaine Abreu Dec 19, 2016 16:34 Alvin Fountain DO Dec 19, 2016 16:46
[2016-12-19] MEDS: SODIUM CHLOR 0.9% 1000 ML INJ 1,000 ML IV SCH (18:06)
[2016-12-19] MEDS ORDERED: NIFE10CA PO (19:50)
[2016-12-19] MEDS ORDERED: LISI10TA3 PO (19:50)
[2016-12-19] MEDS: LATANOPROST 0.005% OPHT SOLN 2.5 ML BTL EACH EYE SCH (20:35)
[2016-12-19] MEDS: ATORVASTATIN 10 MG TAB PO SCH (20:36)
--- NOTE | 2016-12-19 21:00 | HHI.PR ---
Subjective Remarks called to see patient for elevated blood pressure and to go over results of MRI brain-showed acute ischemic CVA and patient is already on asa and plavix added. Patient blood pressure was minimally elevated and will give prn orders also will ask neurology evaluation. Hospitalist already discussed findings with family. Objective Vitals GENERAL: SKIN: Warm and dry. HEAD: Atraumatic. Normocephalic. EYES: Pupils equal and round. No scleral icterus. No injection or drainage. ENT: No nasal bleeding or discharge. Mucous membranes pink and moist. NECK: Trachea midline. No JVD. CARDIOVASCULAR: Regular rate and rhythm. RESPIRATORY: No accessory muscle use. Clear to auscultation. Breath sounds equal bilaterally. GASTROINTESTINAL: Abdomen soft, non-tender, nondistended. Hepatic and splenic margins not palpable. MUSCULOSKELETAL: Extremities without clubbing, cyanosis, or edema. No obvious deformities. NEUROLOGICAL: Awake and alert. No obvious cranial nerve deficits. Motor grossly within normal limits. 4 out of 5 muscle strength in the arms and legs. Normal speech. PSYCHIATRIC: Appropriate mood and affect; insight and judgment normal. Vital Signs Date Time Temp Pulse Resp B/P (MAP) Pulse Ox O2 Delivery O2 Flow Rate FiO2 12/19/16 19:55 97.9 68 17 154/87 (109) 98 12/19/16 19:00 158/92 (114) 12/19/16 18:45 98.1 76 16 168/105 (126) 97 12/19/16 12:23 97.7 71 16 155/95 (115) 97 12/19/16 08:44 97.3 55 22 165/95 (118) 95 12/19/16 05:07 97.6 70 20 152/92 (112) 96 12/19/16 04:01 84 12/19/16 00:02 97.6 72 20 171/84 (113) 97 12/19/16 00:00 72 12/18/16 23:20 12/18/16 22:37 87 18 162/72 (102) 99 Room Air Result Diagram: 12/18/16200412/18/162004 Imaging Last Impressions Head Magnetic Resonance Angiography 12/19/16 0000 Signed Impressions: Service Date/Time: Monday, December 19, 2016 15:01 - CONCLUSION: 1. Unremarkable MR angiography of the brain. Shin Vallecillo MD Brain MRI 12/19/16 0000 Signed Impressions: Service Date/Time: Monday, December 19, 2016 15:01 - CONCLUSION: 1. Acute ischemic infarct involving the lucian as above Shin Vallecillo MD Head CT 12/18/16 0000 Signed Impressions: Service Date/Time: November 20:04 - CONCLUSION: 1. No acute intracranial abnormality seen. 2. Atrophy. 3. Suspected old lacunar infarcts in the basal ganglia regions. Markel Devi MD Objective Remarks General: NAD, lethargic Chest: CTA Cardiac: Regular Abd: +BS, soft ND/NT Ext: No edema A/P Problem List: (1) CVA (cerebral vascular accident) ICD Codes: I63.9 - Cerebral infarction, unspecified Status: Acute Plan: - Pt is an 86yo female with hx of recent CVA (MRI brain 10/12/16 showed 8mm left parietal acute infarct), HTN, COPD, hx of lung CA, and depression who presented to the ED with c/o slurred speech that started around 5pm on 12/18 but resolved prior to admission - Head CT (12/18) --> No acute intracranial abnormality seen. Atrophy. Suspected old lacunar infarcts in the basal ganglia regions. - MRI Brain (12/19) --> Acute ischemic infarct involving the lucian - Pt had a previous stroke in in September 2016 and was discharged on ASA - Previous workup in September included - Holter monitor (10/12) --> Sinus rhythm, an episode of SVT with rate of 171 , around 5 sec in duration, recurrent PVCs, multiple PACs, no pauses, NO ventricular tachycardia noted. - 2D echo (10/14) --> [id number]-olbzwork LVH, estimated EF 50-55% - FLP (12/19) with LDL 71, Cont. Lipitor 10mg HS - Cont. ASA 325mg daily - Plavix 75mg po daily added - Permissive HTN (Pt is on Lisinopril 30 Mg PO DAILY, Nifedipine ER 90 Mg PO DAILY, and Clonidine PRN at home) - PT/ST - Diet recommendations per ST - Start IVF and monitor clinical progress overnight - If pt is stable, anticipate discharge to SNF tomorrow. (2) Hypertension ICD Codes: I10 - Essential (primary) hypertension Status: Chronic Plan: - See above. - Permissive HTN (3) COPD (chronic obstructive pulmonary disease) ICD Codes: J44.9 - COPD (chronic obstructive pulmonary disease) Status: Chronic Plan: - Cont. duoneb (4) Vertigo ICD Codes: R42 - Dizziness and giddiness Status: Acute Plan: - Vestib rehab Problem Qualifiers (1) Hypertension: Qualified Codes: I10 - Essential (primary) hypertension Jj Salas MD Dec 19, 2016 21:00
[2016-12-19] MEDS ORDERED: ENALAPRILAT 1.25 MG/ML VIAL IV PUSH PRN (21:15)
[2016-12-20] VITALS (11 sets, daily range): BP systolic 106–176; BP diastolic 62–87; PULSE 62–90; RESP 16–18; TEMP 96.1–98.6; O2SAT 90–100
[2016-12-20] MEDS: SODIUM CHLOR 0.9% 1000 ML INJ 1,000 ML IV SCH ×2 (03:00→07:39)
[2016-12-20] MEDS: ASPIRIN 81 MG CHEW TAB PO SCH (08:10)
[2016-12-20] MEDS: CLOPIDOGREL 75 MG TAB PO SCH (08:10)
[2016-12-20] MEDS: MONTELUKAST SODIUM 10 MG TAB PO SCH (08:10)
[2016-12-20] MEDS: PANTOPRAZOLE SOD 40 MG DELAYED RELEASE TAB PO SCH (08:10)
[2016-12-20] MEDS: SERTRALINE HCL 50 MG TAB PO SCH (08:10)
[2016-12-20] MEDS: BRIMONIDINE TARTRATE 0.2% OPHT SOLN 5 ML BTL LEFT EYE SCH ×2 (08:12→21:00)
[2016-12-20] MEDS: SODIUM CHLORIDE 0.9% FLUSH 5 ML FLUSH IV FLUSH SCH ×2 (08:12→19:39)
--- NOTE | 2016-12-20 10:08 | HHI.PR ---
Subjective Remarks Patient is alert and oriented 3, speech noted to be slowed Right upper extremity slightly weaker than left patient feels as though this has gotten better since yesterday. Patient continues to have intermittent paresthesias/numbness in right fingers. Patient reports she was is to go home and does not looking forward to inpatient rehabilitation Offers no other medical complaints at this time Objective Vitals Vital Signs Date Time Temp Pulse Resp B/P (MAP) Pulse Ox O2 Delivery O2 Flow Rate FiO2 12/20/16 07:43 98.6 62 16 170/86 (114) 90 12/20/16 04:00 66 12/20/16 03:38 98.0 64 17 142/73 (96) 96 12/19/16 23:19 98.0 75 16 186/106 (132) 96 12/19/16 20:20 69 12/19/16 20:00 63 12/19/16 19:55 97.9 68 17 154/87 (109) 98 12/19/16 19:00 158/92 (114) 12/19/16 18:45 98.1 76 16 168/105 (126) 97 12/19/16 12:23 97.7 71 16 155/95 (115) 97 Result Diagram: 12/18/16200412/18/162004 Other Results Laboratory Tests Test 12/18/16 20:05 12/18/16 20:30 12/19/16 07:41 White Blood Count 7.9 TH/MM3 Red Blood Count 4.59 MIL/MM3 Hemoglobin 13.1 GM/DL Hematocrit 39.7 % Mean Corpuscular Volume 86.6 FL Mean Corpuscular Hemoglobin 28.5 PG Mean Corpuscular Hemoglobin Concent 32.9 % Red Cell Distribution Width 15.8 % Platelet Count 243 TH/MM3 Mean Platelet Volume 8.6 FL Neutrophils (%) (Auto) 54.7 % Lymphocytes (%) (Auto) 33.4 % Monocytes (%) (Auto) 7.8 % Eosinophils (%) (Auto) 3.4 % Basophils (%) (Auto) 0.7 % Neutrophils # (Auto) 4.3 TH/MM3 Lymphocytes # (Auto) 2.6 TH/MM3 Monocytes # (Auto) 0.6 TH/MM3 Eosinophils # (Auto) 0.3 TH/MM3 Basophils # (Auto) 0.1 TH/MM3 CBC Comment DIFF FINAL Differential Comment Prothrombin Time 10.6 SEC Prothromb Time International Ratio 1.0 RATIO Activated Partial Thromboplast Time 27.4 SEC Blood Urea Nitrogen 16 MG/DL Creatinine 0.94 MG/DL Random Glucose 84 MG/DL Calcium Level 9.8 MG/DL Sodium Level 139 MEQ/L Potassium Level 3.7 MEQ/L Chloride Level 104 MEQ/L Carbon Dioxide Level 26.1 MEQ/L Anion Gap 9 MEQ/L Estimat Glomerular Filtration Rate 57 ML/MIN Urine Color LIGHT-YELLOW Urine Turbidity CLEAR Urine pH 7.5 Urine Specific [place] 1.011 Urine Protein NEG mg/dL Urine Glucose (UA) NEG mg/dL Urine Ketones NEG mg/dL Urine Occult Blood NEG Urine Nitrite NEG Urine Bilirubin NEG Urine Urobilinogen LESS THAN 2.0 MG/DL Urine Leukocyte Esterase NEG Urine RBC 1 /hpf Urine WBC 1 /hpf Urine Squamous Epithelial Cells <1 /hpf Urine Bacteria RARE /hpf Microscopic Urinalysis Comment CULT NOT INDICATED Triglycerides Level 84 MG/DL Cholesterol Level 149 MG/DL LDL Cholesterol 71 MG/DL HDL Cholesterol 60.9 MG/DL Cholesterol/HDL Ratio 2.44 RATIO Imaging Last Impressions Head Magnetic Resonance Angiography 12/19/16 0000 Signed Impressions: Service Date/Time: Monday, December 19, 2016 15:01 - CONCLUSION: 1. Unremarkable MR angiography of the brain. Shin Vallecillo MD Brain MRI 12/19/16 0000 Signed Impressions: Service Date/Time: Monday, December 19, 2016 15:01 - CONCLUSION: 1. Acute ischemic infarct involving the lucian as above Shin Vallecillo MD Head CT 12/18/16 0000 Signed Impressions: Service Date/Time: November 20:04 - CONCLUSION: 1. No acute intracranial abnormality seen. 2. Atrophy. 3. Suspected old lacunar infarcts in the basal ganglia regions. Markel Devi MD Objective Remarks General: NAD, awake and alert 3 with slowed speech Chest: CTA Cardiac: Regular Abd: +BS, soft ND/NT Ext: No edema Musculoskeletal: Right upper extremity slightly weaker than left A/P Problem List: (1) CVA (cerebral vascular accident) ICD Codes: I63.9 - Cerebral infarction, unspecified Status: Acute Plan: - Pt is an 86yo female with hx of recent CVA (MRI brain 10/12/16 showed 8mm left parietal acute infarct), HTN, COPD, hx of lung CA, and depression who presented to the ED with c/o slurred speech that started around 5pm on 12/18 but resolved prior to admission - Head CT (12/18) --> No acute intracranial abnormality seen. Atrophy. Suspected old lacunar infarcts in the basal ganglia regions. - MRI Brain (12/19) --> Acute ischemic infarct involving the lucian - Pt had a previous stroke in in September 2016 and was discharged on ASA - Previous workup in September included - Holter monitor (10/12) --> Sinus rhythm, an episode of SVT with rate of 171 , around 5 sec in duration, recurrent PVCs, multiple PACs, no pauses, NO ventricular tachycardia noted. - 2D echo (10/14) --> [id number]-[id number] LVH, estimated EF 50-55% - bilateral carotid US --> mild to moderate atherosclerotic plaquing in both carotid bifurcations. No focal high-grade for hemodynamically significant stenosis - FLP (12/19) with LDL 71, Cont. Lipitor 10mg HS - Cont. ASA 325mg daily - Plavix 75mg po daily added - Permissive HTN for 48 hours - Start patient back on home Lisinopril 10 Mg PO DAILY and Nifedipine ER 90 Mg PO DAILY - PT/ST consulted, PT recommending rehab at discharge - Diet recommendations per ST - IVF initially then discontinued - neurology consulted - If pt is stable and cleared by neurology, anticipate discharge to rehab this afternoon. (2) Hypertension ICD Codes: I10 - Essential (primary) hypertension Status: Chronic Plan: - See above. - Permissive HTN initially -resume home regiment (3) COPD (chronic obstructive pulmonary disease) ICD Codes: J44.9 - COPD (chronic obstructive pulmonary disease) Status: Chronic Plan: - Cont. duoneb (4) Vertigo ICD Codes: R42 - Dizziness and giddiness Status: Acute Plan: - [facility] rehab as outpatient Assessment and Plan Patient examined. Assessment and plan formulated with Madelaine CAMARA-Kelsea. I agree with the above. Case d/w Neurology, Dr. Solano. asked to keep pt an additional night for further observation. also, pt c/o constipation. Laxatives ordered. Problem Qualifiers (1) Hypertension: Qualified Codes: I10 - Essential (primary) hypertension Norah Ware Dec 20, 2016 10:08 Alvin Fountain DO Dec 20, 2016 22:03
[2016-12-20] MEDS: LISINOPRIL 10 MG TAB PO SCH (10:12)
[2016-12-20] MEDS: NIFEdipine 10 MG CAP PO SCH (11:21)
[2016-12-20] MEDS ORDERED: PLAV75TA29 PO (13:17)
--- NOTE | 2016-12-20 13:20 | HHI.DS ---
Discharge Summary Admission Date Dec 18, 2016 at 21:29 Discharge Date: Dec 21, 2016 Admitting Diagnosis TIA (1) CVA (cerebral vascular accident) ICD Codes: I63.9 - Cerebral infarction, unspecified Status: Acute (2) Hypertension ICD Codes: I10 - Essential (primary) hypertension Status: Chronic (3) COPD (chronic obstructive pulmonary disease) ICD Codes: J44.9 - COPD (chronic obstructive pulmonary disease) Status: Chronic (4) Vertigo ICD Codes: R42 - Dizziness and giddiness Status: Chronic Consultants Dr. Solano Procedures none Brief History 86yo F with PMH of CVA recently (MRI brain 10/12/16 showed 8mm left parietal acute infarct), HTN, COPD, lung CA resolved, depression presents to the ED with c/o slurred speech that started around 5pm and has resolved. As per daughter, she sounded like she was drunk and now is much better but speech is not exactly as crisp as normal. Pt also woke up at around 10 am with numbness in right hand going up the arm, then only in the fingers and on my exam completely resolved. She has vertigo and episodes of dizziness and woke up with dizziness this morning that feels like her usual episodes. She is undergoing vestibular treatment. Her last episode of severe vertigo was appx 2 mos ago. Denies any fever, cough, chest pain, sob, n/v, abdominal pain, focal weakness. Pt took her aspirin today and is on no other anticoagulant or antiplatelet therapy. Denies CP or SOB. She does take Meclizine, but it doesn't do much for her dizziness. Daughter reports that pt hasn't been able to ambulate at all today due to dizziness. CBC/BMP: 12/18/16200412/18/162004 Significant Findings Laboratory Tests Test 12/18/16 20:05 12/18/16 20:30 12/19/16 07:41 Estimat Glomerular Filtration Rate 57 ML/MIN (>89) Urine Bacteria RARE /hpf (NONE) HDL Cholesterol 60.9 MG/DL (40.0-60.0) Imaging Last Impressions Head Magnetic Resonance Angiography 12/19/16 0000 Signed Impressions: Service Date/Time: Monday, December 19, 2016 15:01 - CONCLUSION: 1. Unremarkable MR angiography of the brain. Shin Vallecillo MD Brain MRI 12/19/16 0000 Signed Impressions: Service Date/Time: Monday, December 19, 2016 15:01 - CONCLUSION: 1. Acute ischemic infarct involving the lucian as above Shin Vallecillo MD Head CT 12/18/16 0000 Signed Impressions: Service Date/Time: November 20:04 - CONCLUSION: 1. No acute intracranial abnormality seen. 2. Atrophy. 3. Suspected old lacunar infarcts in the basal ganglia regions. Markel Devi MD PE at Discharge General: NAD, awake and alert 3 with slowed speech Chest: CTA Cardiac: Regular Abd: +BS, soft ND/NT Ext: No edema Musculoskeletal: Right upper extremity slightly weaker than left Hospital Course CVA (cerebral vascular accident) - Pt is an 86yo female with hx of recent CVA (MRI brain 10/12/16 showed 8mm left parietal acute infarct), HTN, COPD, hx of lung CA, and depression who presented to the ED with c/o slurred speech that started around 5pm on 12/18 but resolved prior to admission - Head CT (12/18) --> No acute intracranial abnormality seen. Atrophy. Suspected old lacunar infarcts in the basal ganglia regions. - MRI Brain (12/19) --> Acute ischemic infarct involving the lucian - Pt had a previous stroke in in September 2016 and was discharged on ASA - Previous workup in September included - Holter monitor (10/12) --> Sinus rhythm, an episode of SVT with rate of 171 , around 5 sec in duration, recurrent PVCs, multiple PACs, no pauses, NO ventricular tachycardia noted. - 2D echo (10/14) --> Yuqo-rr-zsnbdqjz LVH, estimated EF 50-55% - bilateral carotid US --> mild to moderate atherosclerotic plaquing in both carotid bifurcations. No focal high-grade for hemodynamically significant stenosis - FLP (12/19) with LDL 71, Cont. Lipitor 10mg HS - Cont. ASA 325mg daily - Plavix 75mg po daily added - Permissive HTN for 48 hours - patient resumed on home Lisinopril 10 Mg PO DAILY and Nifedipine ER 90 Mg PO DAILY - PT/ST consulted, PT recommending rehab at discharge - Diet recommendations per ST - Pt seen by Neurology, Dr. Solano. - DC to [place] inpatient rehab Hypertension - See above. - Permissive HTN initially -resume home regiment COPD (chronic obstructive pulmonary disease) - Cont. duoneb Vertigo - [facility] rehab as outpatient Pt Condition on Discharge: Stable Discharge Disposition: Rehab Inpatient Discharge Instructions DIET: Follow Instructions for: Heart Healthy Diet Speech Therapy-Diet Recommends: Mechanical Soft Activities you can perform: Regular-No Restrictions Follow up Referrals: Neurology - 1 Week PCP Follow-up - [address] Nieto New Medications: Clopidogrel (Plavix) 75 Mg Tab 75 MG PO DAILY for blood thinner, #30 TAB Continued Medications: Atorvastatin (Lipitor) 10 Mg Tab 10 MG PO HS for cva, #30 TAB Brimonidine Opth Drops (Brimonidine Opth Drops) 0.2% Soln 1 DROP LEFT EYE Q12HR for Intraocular pressure, #1 BOTTLE 0 Refills Formoterol Neb (Perforomist Neb) 20 Mcg/2 Ml Neb 1 NEBULE INH BID for COPD, #60 NEBULE 0 Refills Latanoprost Opth Drops (Latanoprost Opth Drops) 0.005% Drops 1 DROP EACH EYE HS for Glaucoma, #2.5 ML 0 Refills Refrigerate until opened. Lisinopril (Lisinopril) 10 Mg Tab 10 MG PO DAILY, #30 TAB 0 Refills Montelukast (Singulair) 10 Mg Tab 10 MG PO DAILY, #30 TAB 0 Refills Nifedipine (Nifedipine) 10 Mg Cap 30 MG PO DAILY for Blood Pressure Management, #120 CAP 0 Refills Omeprazole (Omeprazole) 40 Mg Cap 40 MG PO DAILY, #30 CAP 0 Refills Ondansetron (Zofran) 4 Mg Tab 4 MG PO Q6HR PRN for NAUSEA OR VOMITING, #12 TAB Sertraline (Zoloft) 25 Mg Tab 75 MG PO DAILY, #30 TAB 0 Refills [calcium ] () 1000 MG PO DAILY Discontinued Medications: Clonidine (Clonidine) 0.1 Mg Tab 0.1 MG PO Q8HR PRN for SYS BP GREATER THAN 150 MMHG, #60 TAB 0 Refills Potassium Chloride ER (Potassium Chloride ER) 20 Meq Tab 20 MEQ PO DAILY for Electrolyte Replacement, #6 TAB 0 Refills Norah Ware Dec 20, 2016 13:20 Alvin Fountain DO Dec 22, 2016 00:12
[2016-12-20] MEDS ORDERED: BISACODYL 10 MG SUPP RECTAL PRN (15:00)
[2016-12-20] MEDS: MAGNESIUM HYDROXIDE SUSP 30 ML CUP PO PRN ×2 (15:26→19:37)
[2016-12-20 15:55] LABS: FREE T4 0.78 NG/DL (0.76-1.46)
--- NOTE | 2016-12-20 17:52 | MB ---
cc: ANAI WEI M.D. DATE OF CONSULTATION: 12/20/2016. REASON FOR CONSULTATION: Stroke. HISTORY OF PRESENT ILLNESS: The patient is a pleasant 86-year-old woman who recently had a stroke in September over the left parietal region who comes in because of stroke symptoms. The daughter stated she was very dizzy and was unable to walk and was having trouble with her speech. She has a history of hypertension, COPD, lung cancer in remission, depression. Also a history of left parietal stroke back in September of 2016. She also has a history of abdominal and thoracic aneurysm. PAST SURGICAL HISTORY: 1. Abdominal aortic aneurysm post stent grafting. 2. Appendectomy. 3. EGD. 4. Lung lobectomy. HOME MEDICINES: 1. Full-dose aspirin. 2. Lipitor. 3. Potassium. 4. Nifedipine. 5. Omeprazole. 6. Zoloft. 7. Clonidine. 8. Pantoprazole. 9. Alprazolam. ALLERGIES: PLEASE REVIEW. SOCIAL HISTORY: Lives with the daughter. No alcohol. No drugs. FAMILY HISTORY: Noncontributory. PHYSICAL EXAMINATION: VITAL SIGNS: Temperature 98.6, pulse 80, respiratory rate 16, blood pressure 106/62, satting at 93%. NECK: The neck is supple. HEART: Regular. NEUROLOGICAL EXAMINATION: She is awake and alert. Her speech is slightly hypophonic but not dysarthric or aphasic. Pupils react. Symmetrical. Motor-tejada, she does have some residual right-sided weakness predominantly in the arms. The legs seem intact. Htjkkn-aqvt-mcnmkt no past pointing, just slower on the right. Toes withdraws. DTRs are 1+. Her gait I am holding at this time. LABORATORY STUDIES: Her labs are reviewed. RADIOLOGICAL STUDIES: Her MRI was completed. It shows an acute infarct in the lucian 10 mm x 5 mm. Her MRA three affiliated of [place] was unremarkable. Carotid ultrasound back in September showed mild to moderate plaquing. Echocardiogram showed an ejection fraction of 50% to 55% with mild atrial enlargement. IMPRESSION: New infarct, pontine, in an 86-year-old woman with prior stroke, left parietal with history of hypertension and hyperlipidemia and other risk factors. RECOMMENDATIONS: 1. Recommend controlling her blood pressure. 2. Will continue her on a baby aspirin and Plavix. Continue that for three months and if she is stable in three months, the aspirin can be discontinued. 3. Have her blood pressure controlled. 4. When stable, can be discharged to rehab tomorrow morning. MD KAVITA Cox/VASQUEZ /2:43 PM /5:42 PM
[2016-12-20] MEDS: ATORVASTATIN 10 MG TAB PO SCH (19:37)
[2016-12-20] MEDS: LATANOPROST 0.005% OPHT SOLN 2.5 ML BTL EACH EYE SCH (21:00)
[2016-12-21 00:50] VITALS: BP 179/86; PULSE 73; RESP 18; TEMP 98.8; O2SAT 94
[2016-12-21 01:50] VITALS: BP 176/91; PULSE 74; RESP 16; TEMP 98.4; O2SAT 95
[2016-12-21 03:50] VITALS: BP 153/99; PULSE 71; RESP 18; TEMP 97; O2SAT 97
[2016-12-21 07:50] VITALS: BP 149/81; PULSE 77; RESP 17; TEMP 99; O2SAT 94
[2016-12-21] MEDS: CLOPIDOGREL 75 MG TAB PO SCH (08:26)
[2016-12-21] MEDS: PANTOPRAZOLE SOD 40 MG DELAYED RELEASE TAB PO SCH (08:26)
[2016-12-21] MEDS: LISINOPRIL 10 MG TAB PO SCH (08:26)
[2016-12-21] MEDS: ASPIRIN 81 MG CHEW TAB PO SCH (08:26)
[2016-12-21] MEDS: MONTELUKAST SODIUM 10 MG TAB PO SCH (08:26)
[2016-12-21] MEDS: SERTRALINE HCL 50 MG TAB PO SCH (08:27)
[2016-12-21] MEDS: NIFEdipine 10 MG CAP PO SCH (08:27)
[2016-12-21] MEDS: SODIUM CHLORIDE 0.9% FLUSH 5 ML FLUSH IV FLUSH SCH (08:28)
[2016-12-21] MEDS: BRIMONIDINE TARTRATE 0.2% OPHT SOLN 5 ML BTL LEFT EYE SCH (08:29)
[2016-12-21] MEDS ORDERED: NIFE1TAB86 PO (11:43)
--- NOTE | 2016-12-21 11:46 | HHI.PR ---
Subjective Remarks Patient reports feeling better today feels as thought numbness is improving in LUE also feels as though speech is getting better concerned that she is having difficulty walking a reports a fall last night. Denies injury from fall able to ambulate with assistance after the fall Objective Vitals Vital Signs Date Time Temp Pulse Resp B/P (MAP) Pulse Ox O2 Delivery O2 Flow Rate FiO2 12/21/16 07:50 99.0 77 17 149/81 (103) 94 12/21/16 03:50 97.0 71 18 153/99 (117) 97 12/21/16 01:50 98.4 74 16 176/91 (119) 95 12/21/16 00:50 98.8 73 18 179/86 (117) 94 12/20/16 23:50 97.5 90 18 135/87 (103) 94 12/20/16 23:40 96.1 70 16 176/85 (115) 94 12/20/16 20:00 96.7 72 16 162/80 (107) 95 12/20/16 19:38 74 12/20/16 17:54 96.5 70 16 140/77 (98) 100 12/20/16 16:34 97.4 76 16 116/86 (96) 92 12/20/16 12:12 98.6 80 16 106/62 (77) 93 Result Diagram: 12/18/16200412/18/162004 Imaging Last Impressions Head Magnetic Resonance Angiography 12/19/16 0000 Signed Impressions: Service Date/Time: Monday, December 19, 2016 15:01 - CONCLUSION: 1. Unremarkable MR angiography of the brain. Shin Vallecillo MD Brain MRI 12/19/16 0000 Signed Impressions: Service Date/Time: Monday, December 19, 2016 15:01 - CONCLUSION: 1. Acute ischemic infarct involving the lucian as above Shin Vallecillo MD Head CT 12/18/16 0000 Signed Impressions: Service Date/Time: November 20:04 - CONCLUSION: 1. No acute intracranial abnormality seen. 2. Atrophy. 3. Suspected old lacunar infarcts in the basal ganglia regions. Markel Devi MD Objective Remarks General: NAD, awake and alert 3 with slowed speech Chest: CTA Cardiac: Regular Abd: +BS, soft ND/NT Ext: No edema Musculoskeletal: Right upper extremity slightly weaker than left Procedures none A/P Problem List: (1) CVA (cerebral vascular accident) ICD Codes: I63.9 - Cerebral infarction, unspecified Status: Acute Plan: CVA (cerebral vascular accident) - Pt is an 86yo female with hx of recent CVA (MRI brain 10/12/16 showed 8mm left parietal acute infarct), HTN, COPD, - comgmt with neurology hx of lung CA, and depression who presented to the ED with c/o slurred speech that started around 5pm on 12/18 but resolved prior to admission - Head CT (12/18) --> No acute intracranial abnormality seen. Atrophy. Suspected old lacunar infarcts in the basal ganglia regions. - MRI Brain (12/19) --> Acute ischemic infarct involving the lucian - Pt had a previous stroke in in September 2016 and was discharged on ASA - Previous workup in September included - Holter monitor (10/12) --> Sinus rhythm, an episode of SVT with rate of 171 , around 5 sec in duration, recurrent PVCs, multiple PACs, no pauses, NO ventricular tachycardia noted. - 2D echo (10/14) --> Ydoa-pb-xthsgart LVH, estimated EF 50-55% - bilateral carotid US --> mild to moderate atherosclerotic plaquing in both carotid bifurcations. No focal high-grade for hemodynamically significant stenosis - FLP (12/19) with LDL 71, Cont. Lipitor 10mg HS - Cont. ASA 325mg daily - Plavix 75mg po daily added - Permissive HTN for 48 hours - Start patient back on home Lisinopril 10 Mg PO DAILY and Nifedipine ER 90 Mg PO DAILY - PT/ST consulted, PT recommending rehab at discharge - Diet recommendations per ST - IVF initially then discontinued - If pt is stable and cleared by neurology - BRI tijerina in patient rehab (2) Hypertension ICD Codes: I10 - Essential (primary) hypertension Status: Chronic Plan: - See above. - Permissive HTN initially -resume home regiment, BP remains elevated increase Procardia to 60 mg daily (3) COPD (chronic obstructive pulmonary disease) ICD Codes: J44.9 - COPD (chronic obstructive pulmonary disease) Status: Chronic Plan: - Cont. duoneb (4) Vertigo ICD Codes: R42 - Dizziness and giddiness Status: Acute Plan: - [facility] rehab as outpatient Assessment and Plan Patient examined. Assessment and plan formulated with Norah Ware PA-C. I agree with the above. - Case d/w Dr. Solano (12/20/16) - increase procardia XL to 60mg daily - Pt ready for discharge. - DC to [facility] Problem Qualifiers (1) Hypertension: Qualified Codes: I10 - Essential (primary) hypertension Norah Ware Dec 21, 2016 11:46 Alvin Fountain DO Dec 21, 2016 11:54
[2016-12-21 11:50] VITALS: BP 126/78; PULSE 67; RESP 17; TEMP 96.6; O2SAT 96
--- NOTE | 2016-12-21 11:55 | HHI.DCPOC ---
Discharge Care Plan Diagnosis: (1) CVA (cerebral vascular accident) (2) Hypertension (3) COPD (chronic obstructive pulmonary disease) Goals to Promote Your Health * To prevent worsening of your condition and complications * To maintain your health at the optimal level Directions to Meet Your Goals Take your medications as prescribed Follow your dietary instruction Follow activity as directed Keep your appointments as scheduled Take your immunizations and boosters as scheduled If your symptoms worsen call your PCP, if no PCP go to Urgent Care Center or Emergency Room Smoking is Dangerous to Your Health. Avoid second hand smoke Call the 24-hour hour crisis hotline for domestic abuse at Alvin Fountain DO Dec 21, 2016 11:55
[2016-12-21] MEDS ORDERED: NIFEdipine 30 MG SUSTAINED RELEASE TAB PO ONE (12:30)
--- NOTE | 2016-12-21 16:44 | HHI.DCPOC ---
Discharge Care Plan Diagnosis: (1) CVA (cerebral vascular accident) (2) Impaired mobility and activities of daily living Goals to Promote Your Health * To prevent worsening of your condition and complications * To maintain your health at the optimal level Directions to Meet Your Goals Take your medications as prescribed Follow your dietary instruction Follow activity as directed Keep your appointments as scheduled Take your immunizations and boosters as scheduled If your symptoms worsen call your PCP, if no PCP go to Urgent Care Center or Emergency Room Smoking is Dangerous to Your Health. Avoid second hand smoke Call the 24-hour hour crisis hotline for domestic abuse at Norah Ware Dec 21, 2016 16:44 Alvin Fountain DO Dec 22, 2016 00:12
[2016-12-22] MEDS ORDERED: NIFEdipine 60 MG SUSTAINED RELEASE TAB PO SCH (09:00)
[2017-01-07] MEDS ORDERED: COMMODE 3-IN-11 MIS (10:52)
[2017-01-07] MEDS ORDERED: GETGO ROLLING W1 MI1 (10:52)
[2017-01-07] MEDS ORDERED: WHEEMIS3 (10:52)
[2017-01-09] MEDS ORDERED: ASPI-99 PO (10:49)
[2017-01-09] MEDS ORDERED: GNP5TAB6 PO (10:49)
[2017-01-09] MEDS ORDERED: BRIM0.2S4 LEFT EYE (10:49)
[2017-01-09] MEDS ORDERED: ZOLO25TA PO (10:49)
[2017-01-09] MEDS ORDERED: FORM20NE INH (10:49)
[2017-01-09] MEDS ORDERED: CALC250 PO (10:49)
[2017-01-09] MEDS ORDERED: PLAV75TA29 PO (10:49)
[2017-01-09] MEDS ORDERED: MONT10TA2 PO (10:49)
[2017-01-09] MEDS ORDERED: OMEP40CA2 PO (10:49)
[2017-01-09] MEDS ORDERED: NIFE1TAB86 PO (10:49)
[2017-01-09] MEDS ORDERED: LATA0.002 EACH EYE (10:49)
[2017-01-09] MEDS ORDERED: LIPI10TA PO (10:49)
[2017-01-09] MEDS ORDERED: LISI10TA3 PO (10:49)
== END 2016-12-21 14:40 ==
LOC: NEPC 18:03 → NEDA 21:29 → NEPGCP 23:29 → N06B 12-20 17:16
PROVIDERS: ADMIT Hospitalist; ATTEND Hospitalist
DX: I63.9 Cerebral infarction, unspecified (principal); I10 Essential (primary) hypertension; R26.2 Difficulty in walking, not elsewhere classified; R42 Dizziness and giddiness; J44.9 Chronic obstructive pulmonary disease, unspecified; Z79.899 Other long term (current) drug therapy; Z79.82 Long term (current) use of aspirin; Z85.118 Personal history of other malignant neoplasm of bronchus and lung; Z95.5 Presence of coronary angioplasty implant and graft; W19.XXXA Unspecified fall, initial encounter
CPT/HCPCS: 70450; 70544; 70551; 76937; 80048; 80061; 81001; 82140; 82607; 82746; 84439; 84443; 85025; 85610; 85730; 86592; 92526; 92610; 96361; 96374; 97162; 97167; 99285; G0378; G8987; G8988; G8996; G8997; G8998; J7030